=== PATIENT | female | born 1980 | race Caucasian/White ===

== ENCOUNTER 2022-05-14 17:25 | Emergency (ER) | payer BC, SELFPAY ==
[2022-05-14 17:26] VITALS: BP 185/102; PULSE 98; RESP 16; TEMP 36.2; O2SAT 100; BMI 24.2
--- NOTE | 2022-05-14 17:40 | EKG12_ITS ---
Test Reason : CP Blood Pressure : / mmHG Vent. Rate : 088 BPM Atrial Rate : 088 BPM P-R Int : 122 ms QRS Dur : 094 ms QT Int : 366 ms P-R-T Axes : 073 053 046 degrees QTc Int : 442 ms Normal sinus rhythm Nonspecific ST abnormality Abnormal ECG Confirmed by KAREN MATHEW, WILSON ([id number]), continuity editor HARINDER BRAVO ([id number]) on 05/18/2022 12:14:30 PM Referred By: SHI/EDA Confirmed By:WILSON JONES MD
--- NOTE | 2022-05-14 17:40 | EDS_ITS ---
HPI History of Present Illness Chief Complaint: Chest Pain Informant: patient Onset/Context/Timing Onset: Yesterday Activity at onset: gradual Timing: Continuous Quality: Positive for Tightness Location: Substernal Current Severity: Mild Maximum Severity: Mild Narrative Narrative: Patient presents emergent care secondary to chest pain. She states yesterday she noted some chest pressure in the center portion of her chest. It is worse with cough. It is slightly worse with a deep breath as well. She has not had fever or chills. At urgent care she had a chest x-ray that was reportedly normal. She states she was told to come here to rule out blood clot in her zeinab ng. PFSH PFSH Medical History no medical history no medical history Allergy/AdvReac Type Severity Reaction Status Date / Time No Known Allergies Allergy Verified 05/14/22 17:26 Family History Grandfather CAD (coronary artery disease) Social History Smoking Status: Never smoker ROS ROS ED Constitutional Constitutional ED: Denies chills or fever(s) Eyes Eyes: Denies change in vision or discharge from eye(s) ENT ENT ED: Denies discharge from eye(s), rhinorrhea or sore throat Cardiovascular Cardiovascular: Reports chest pain; Denies palpitations Respiratory/Chest Respiratory/Chest: Reports cough and dyspnea; Denies sputum Gastrointestinal Gastrointestinal: Denies abdominal pain, diarrhea, nausea or vomiting Genitourinary Genitourinary ED: Denies dysuria Musculoskeletal Musculoskeletal: Denies back pain or extremity pain Integumentary Denies Abrasions or rash Neurologic Neurologic: Denies headache(s) or weakness Psychiatric Psychiatric: Denies anxiety or depression Allergic/Immunologic Allergic/Immunologic ED: Denies lip swelling or urticaria EXAM Physical Exam Const Vital Signs: 05/14/22 17:26 Temperature 97.2 F L Temperature Source Temporal Pulse Rate 98 Respiratory Rate 16 Blood Pressure 185/102 H Blood Pressure Mean 129 Pulse Ox 100 Oxygen Delivery Method Room Air Positive well nourished and well developed General Appearance ED: well developed HEENT Reports normocephalic and head/scalp atraumatic Eyes PERRL and EOMs intact bilaterally Neck supple Chest Wall inspection of chest normal and palpation of chest normal Chest Narrative: No reproducible chest wall tenderness. Resp normal respiratory effort and clear to auscultation bilaterally Cardio regular rate and regular rhythm GI normal to inspection, nondistended, normoactive bowel sounds Palpation: soft Extremity normal to inspection Neuro oriented x3 and no sensory deficits noted Sensorium / Orientation: alert Motor Exam: strength 5/5 throughout Psych mental status grossly normal Skin no rashes or lesions noted Heart Score History: Slightly/Non-Suspicious ECG: Nonspecific Repolarization Age: </= 45 years Risk Factors: No Risk Factors Troponin: </= Normal Limit Score: 1 MDM MDM MDM Narrative Medical decision making narrative: Patient had a chest x-ray obtained at urgent care that was normal. EKG and lab work obtained here. Lab Data Attestation: I reviewed the patient's lab results. Labs: Laboratory Results - last 24 hr 05/14/22 05/14/22 05/14/22 17:50 17:50 17:50 WBC 6.1 RBC 4.67 Hgb 14.3 Hct 41.6 MCV 89.1 MCH 30.6 MCHC 34.4 RDW Std Deviation 37.4 RDW Coeff of Pa 11.5 L Plt Count 250 MPV 8.7 Immature Gran % (Auto) 0.200 Neut % (Auto) 76.9 H Lymph % (Auto) 14.2 L Robeson % (Auto) 8.2 Eos % (Auto) 0.2 Baso % (Auto) 0.3 Absolute Neuts (auto) 4.7 Absolute Lymphs (auto) 0.87 Nucleated RBC % 0 D-Dimer Quant (PE/DVT) 0.39 Sodium 135 L Potassium 3.7 Chloride 102 Carbon Dioxide 22.0 Anion Gap 11 BUN 12 Creatinine 0.74 Estim Creat Clear Calc 85.52 Est GFR (MDRD) Af Amer 111 Est GFR (MDRD) Non-Af 91 BUN/Creatinine Ratio 16.3 Glucose 79 Calcium 9.2 Troponin I High Sens 18 EKG Initial EKG: Attestation: I personally reviewed and interpreted this EKG as follows: Interpretation: Sinus Rhythm (Sinus [address] depression. Artifact is noted in V3 through V6.) Treatment and Re-Evaluation Narrative: Repeat evaluation patient resting comfortably. Lab work is unremarkable with normal D-dimer and normal troponin. EKG reveals no obvious ST elevation. She has had pain for greater than 6 hours with a normal troponin at this time. She does have URI symptoms and my suspicion is that she has inflammation of the cartilage around her sternum causing her pain. She is advised to use ibuprofen. Return instructions are given. Patient's blood pressure will be rechecked prior to discharge as it was elevated on arrival. Discharge Plan Triage Chief Complaint: Chest Pain ED Provider: Terri Lrason Dx/Rx/DC Orders Clinical Impression: Chest pain Instructions: ED Chest Pain, Uncertain Cause Primary Care Provider: Benita Shin NP Referrals: Benita Shin INTERNAL AFFAIRS COMMANDER, INTERNAL AFFAIRS COMMANDER-C [Primary Care Provider] - 3-5 Days if not improving Disposition Disposition: Home, Self Care
[2022-05-14 18:02] LABS: Absolute Lymphocyte Count 0.87 X10^3/uL (0.83-4.51); Absolute Neutrophil Count 4.7 X10^3/uL (2.0-7.7); Basophil# 0.02 X10^3/uL; Basophil% 0.3 % (0-1); Eosinophil# 0.01 X10^3/uL; Eosinophils% 0.2 % (0-5); Hematocrit 41.6 % (37-47); Hemoglobin 14.3 g/dL (12.0-15.0); Lymphocyte # 0.87 X10^3/ul (0.83-4.51); Lymphocyte % 14.2 % (19-41); Mean Corp Hgb Conc 34.4 g/dL (32-36); Mean Corpuscular Hgb 30.6 pg (27.0-32.0); Mean Corpuscular Volume 89.1 fL (81-99); Mean Platelet Vol. 8.7 fl (6.2-12.0); Monocyte% 8.2 % (0-10); NRBC Flagged by Analyzer 0 % (0-5); Neutrophil # 4.72 X10^3/uL (2.7-7.7); Neutrophil % 76.9 % (47-70); Platelet Count 250 K/mm3 (150-450); RBC Distribution Width CV 11.5 % (11.6-14.6); RBC Distribution Width SD 37.4 fl (35.1-43.9); Red Blood Count 4.67 M/mm3 (4.2-5.4); White Blood Count 6.1 K/mm3 (4.4-11.0)
[2022-05-14 18:29] LABS: D-Dimer Quantitative (DVT/PE) 0.39 FEU/ug/m (0.27-0.49)
[2022-05-14 18:37] LABS: Anion Gap 11 (5-15); BUN 12 mg/dL (7-18); BUN/Creat Ratio 16.3 RATIO (10-20); Calcium,Total 9.2 mg/dL (8.5-10.1); Chloride 102 mmol/L (98-107); Creatinine, Serum 0.74 mg/dL (0.55-1.02); EST Glomerular Filtration Rate 91 mL/min (>60); Est Glom Filt Rate - Afr Amer 111 mL/min (>60); Estimated Creatinine Clearance 85.52 ml/min; Glucose 79 mg/dL (74-106); Potassium 3.7 mmol/L (3.5-5.1); Sodium Level 135 mmol/L (136-145); Troponin-I HS 18 pg/mL (3.0-54.0)
[2022-05-14 19:02] VITALS: BP 154/92; PULSE 85; RESP 13; O2SAT 100
== END 2022-05-14 19:04 | disposition home or self-care (01) ==
PROVIDERS: Emergency Provider Emergency Medicine; PCP Nurse Practitioner Family; Visit Provider Emergency Medicine
DX: R07.9 Chest pain, unspecified (principal); R05.9 Cough, unspecified; Z82.49 Family history of ischemic heart disease and other diseases of the circulatory system
CPT/HCPCS: 80048; 84484; 85025; 85379; 93005; 99284; A4216

== ENCOUNTER → 2023-07-25 | Outpatient (CLI) | payer BC, SELFPAY ==
--- OUTSIDE RECORDS SUMMARY | 2023-07-25 12:34 | XMS RPT_ITS | CCD ---
Author Name Unknown Address [address] [place] [address] Organization [facility] Care Team Providers Care Diesel Scoop Operator Name Role Phone WILLIS WILLINGHAM Unavailable Unavailable REFERRING, PRACHI CUMMINGS ID~[id number] Unavailable Unava ilable Keyur Doyle III Primary Care Provider KEYUR DOYLE III Primary Care Unavail able KEYUR DOYLE III Primary Care Unavail able CARLTON STOREY Referring Unavailable Problems Problem Classification Problem Date Documented Da te Episodic/Chronic Other circulatory disease (1 source) Elevated blood-pressure reading without diagnosis of hypertension; Translations: [Elevated blood-pressure reading, without diagnosis of hypertension] Episodic Other lower respiratory disease (1 source) Cough; Translations: [Acute cough] Episodic Other lower respiratory disease (1 source) Pleuritic pain; Translations: [Pleurodynia] Episodic Other lower respiratory disease (1 source) Pleurodynia; Translations: [Pleuritic chest pain] Onset: 05-14-2022 Episodic Unclassified (1 source) Acute cough; Translations: [Acute cough] Onset: 05-14-2022 Results Test Name Value Interpretation Reference Range Facil ity Vital Signs Date Time Vital Sign Value Performing Clinician Marge foote 05-14-2022 17:04-0500 Diastolic blood pressure 88 mm[Hg] Carlton Storey MD Work Phone: [facility] 05-14-2022 17:04-0500 Systolic blood pressure 164 mm[Hg] Carlton Storey MD Work Phone: [facility] 05-14-2022 15:40-0500 Body temperature 98.01 [degF] Carlton Storey MD Work Phone: [facility] 05-14-2022 15:40-0500 Body weight 64.23 kg Carlton Storey MD Work Phone: [facility] 05-14-2022 15:40-0500 Heart rate 104 /min Carlton Storey MD Work Phone: [facility] 05-14-2022 15:40-0500 Respiratory rate 18 /min Carlton Storey MD Work Phone: [facility] 05-14-2022 15:40-0500 SaO2% (BldA) [Mass fraction] 99 % Carlton Storey MD Work Phone: [facility] Encounters Encounter Date Encounter Type Care Provider Facility Start: 05-14-2022 End: 05-14-2022 ambulatory [facility] Facility:[facility] Start: 05-14-2022 End: 05-14-2022 ambulatory [facility] Facility:[facility] Start: 05-14-2022 End: 05-14-2022 Patient encounter procedure Carlton Storey MD Work Phone: [facility] Plan of Treatment Date Care Activity Detail Author Start: 02-11-2022 Influenza vaccination INFLUENZA (#1) [facility] Start: 06-13-2021 DEPRESSION ASSESSMENT DEPRESSION ASS ESSMENT [facility] Start: 02-24-2021 HPV TESTING HPV TESTING [facility] Start: 02-24-2021 PAP TESTING PAP TESTING [facility] Start: 2019 Mammography MAMMOGRAM [facility] Start: 1998 Urine microalbumin profile DTAP,TDAP ,TD (1 - Tdap) [facility] Start: 1997 HEPATITIS C SCREENING HEPATITIS C SC REENING [facility] Start: 1997 HIV SCREENING HIV SCREENING [facility] Start: 02-08-1980 COVID-19 VACCINE (#1) COVID-19 VACCI NE (#1) [facility] Start: 1979 HEPATITIS B (1 of 3 - 3-dose series) HEPATITIS B (1 of 3 - 3-dose series) [facility] Payers Date Payer Category Payer Unknown ANTHEM BLUE CARD PPO OOS [id number] 2019-Present [phone] [address] [place] [address] O [id number] 2019 Unknown [id number] 2017 Unknown [id number] Social History Date Type Detail Facility Start: 07-11-2013 Tobacco smoking stat us NHIS Never smoked tobacco [facility] Start: 07-11-2013 Tobacco use and exposure Smokeless tobacco non-user [facility] Start: 05-14-2022 Alcohol intake Current non-dr glass bender of alcohol (finding) [facility] Start: 1980 Sex Assigned At Not on file [facility] Start: 05-04-2022 End: 05-14-2022 Exposure to SARS-CoV-2 (event) Not sure [facility] Work Phone: Progress note 05-14-2022 Note Date & Type Note Facility 05-14-2022 Note HNO ID: [id number] Author: RT Dimitris(R) Service: ? Author Type: Film Sorter Type: Progress Notes Filed: 05/14/2022 5:03 PM Note Text: Radiology Service Progress Note PATIENT NAME: Isael Carreno DATE OF SERVICE: May 14, 2022 TIME: 5:02 PM PATIENT IDENTITY VERIFICATION COMPLETED USING TWO (2) IDENTIFIERS: Name and Date of confirmed by patient verbally. FALL SCREENING: Has the patient had 2 falls in the last year or 1 fall with injury or currently using an Ambulatory Assistive Device (Walker, Cane, Wheelchair, Crutches, etc.)? No PATIENT GENDER DATA: Female. status: : No status: NO. PATIENT RELEVANT IMPLANT DATA REVIEWED: Yes RADIOLOGY DEPARTMENT: General X-ray: Exam(s) Completed: Chest X-Ray PERIPHERAL IV DATA: Not applicable SIGNED BY: RT Dimitris(R) May 14, 2022 5:02 PM [facility] Progress note 05-14-2022 Note Date & Type Note Facility 05-14-2022 Note HNO ID: [id number] Author: Carlton Storey MD Service: ? Author Type: Physician Type: Progress Notes Filed: 05/14/2022 5:34 PM Note Text: Patient presents with: Cough: Chest congestion, ST x1 day HPI: Feeling sick for 24 hours. Positive symptoms: Cough, Chest tightness, chest hurts with deep breaths and lying down, Chills, Body Aches, Shortness of breath, Negative symptoms: Sore throat, Nasal Congestion, Rhinorrhea, Headache, Nausea, Vomiting, Diarrhea, OTC: none. Had illness with loss of smell April 2020 but has not had positive COVID testing. Denies risk of . No personal or family history of blood clots. No recent travel, leg swelling, or leg pain. PAST MEDICAL HISTORY Diagnosis Date NEGATIVE MEDICAL HISTORY PAST SURGICAL HISTORY Procedure Laterality Date PAST SURGICAL HISTORY OF 05/15 HYMENECTOMY UNSPECIFIED ORAL SURGERY PROCEDURE, BY REPORT [facility] MEDICATIONS: No current outpatient medications on file. No current facility-administered medications for this visit. ALLERGIES: ALLERGIES No Known Allergies VITALS: BP 172/100 Pulse 104 Temp 36.7 ?C (98 ?F) Resp 18 Wt 64.2 kg (141 lb 9.6 oz) LMP 09/07/2017 SpO2 99% BMI 24.31 kg/m? Last 4 Encounter BP Readings: Date: BP: 05/14/2022 162/90 09/18/2017 124/76 07/15/2016 108/70 06/12/2016 108/68 PHYSICAL EXAM: GEN: Pleasant, in no acute distress, accompanied by her . HEENT: PERRL, EOMI, conjunctiva clear, ulcer/eschar left upper vermilion border of the lip Ears: canals clear. TMs without erythema, bulge, or effusion Sinuses: non-tender frontal sinus, non-tender maxillary sinuses Throat: moist mucous membranes, no erythema, no exudate Neck: supple, no thyromegaly, no lymphadenopathy HEART: regular rate and rhythm during my exam, no murmurs LUNGS: clear to auscultation, no wheezes or crackles, no increased WOB CHEST: no peristernal tenderness with palpation. ASSESSMENT/PLAN: 1. Acute cough - ICD9: 786.2, ICD10: R05.1 (primary diagnosis) 2. Pleuritic chest pain - ICD9: 786.52, ICD10: R07.81 - XR CHEST 2V FRONTAL/LAT - negative Suspect early influenza-like illness. Her differential includes pulmonary embolism and pericarditis. She is feeling more uncomfortable with chest pain and will go for further evaluation in the ER. Report sent to [facility] by [facility]. 3. Elevated blood pressure reading without diagnosis of hypertension - ICD9: 796.2, ICD10: R03.0 Improved with recheck. She does have a PCP. Carlton Storey MD [facility] History of Present illness Narrative 05-14-2022 Carlton Storey MD - 05/14/2022 3:46 PM EST Note Date & Type Note Facility 05-14-2022 History of Presen t illness Narrative Patient presents with: Cough: Chest congestion, ST x1 day HPI: Feeling sick for 24 hours. Positive symptoms: Cough, Chest tightness, chest hurts with deep breaths and lying down, Chills, Body Aches, Shortness of breath, Negative symptoms: Sore throat, Nasal Congestion, Rhinorrhea, Headache, Nausea, Vomiting, Diarrhea, OTC: none. Had illness with loss of smell April 2020 but has not had positive COVID testing. Denies risk of . No personal or family history of blood clots. No recent travel, leg swelling, or leg pain. PAST MEDICAL HISTORY Diagnosis Date NEGATIVE MEDICAL HISTORY PAST SURGICAL HISTORY Procedure Laterality Date PAST SURGICAL HISTORY OF 05/15 HYMENECTOMY UNSPECIFIED ORAL SURGERY PROCEDURE, BY REPORT [facility] MEDICATIONS: No current outpatient medications on file. No current facility-administered medications for this visit. ALLERGIES: ALLERGIES No Known Allergies VITALS: BP 172/100 Pulse 104 Temp 36.7 C (98 F) Resp 18 Wt 64.2 kg (141 lb 9.6 oz) LMP 09/07/2017 SpO2 99% BMI 24.31 kg/m Last 4 Encounter BP Readings: Date: BP: 05/14/2022 162/90 09/18/2017 124/76 07/15/2016 108/70 06/12/2016 108/68 PHYSICAL EXAM: GEN: Pleasant, in no acute distress, accompanied by her . HEENT: PERRL, EOMI, conjunctiva clear, ulcer/eschar left upper vermilion border of the lip Ears: canals clear. TMs without erythema, bulge, or effusion Sinuses: non-tender frontal sinus, non-tender maxillary sinuses Throat: moist mucous membranes, no erythema, no exudate Neck: supple, no thyromegaly, no lymphadenopathy HEART: regular rate and rhythm during my exam, no murmurs LUNGS: clear to auscultation, no wheezes or crackles, no increased WOB CHEST: no peristernal tenderness with palpation. ASSESSMENT/PLAN: 1. Acute cough - ICD9: 786.2, ICD10: R05.1 (primary diagnosis) 2. Pleuritic chest pain - ICD9: 786.52, ICD10: R07.81 - XR CHEST 2V FRONTAL/LAT - negative Suspect early influenza-like illness. Her differential includes pulmonary embolism and pericarditis. She is feeling more uncomfortable with chest pain and will go for further evaluation in the ER. Report sent to [facility] by [employer]. 3. Elevated blood pressure reading without diagnosis of hypertension - ICD9: 796.2, ICD10: R03.0 Improved with recheck. She does have a PCP. Carlton Storey MD documented in this encounter [facility] History of Past illness Narrative 08-26-2009 Note Date & Type Note Facility documented as of this encounter (statuses as of 05/14/2022) [facility] Evaluation note Note Date & Type Note Facility documented in this encounter [facility] Summary Purpose Family History No Family History Records FoundNo Family History Records Found Advance Directives No Advanced Directives Records FoundNo Advanced Directives Records Found Additional Source Comments INFORMATION SOURCE (unrecogn ized section and content) DATE CREATED AUTHOR AUTHOR'S ORGANIZ ATION 05/15/2022 [facility] Source Comments (unrecognize d section and content) In the event this informatio n is protected by the Federal Confidentiality of Alcohol and Drug Abuse Patient Records regulations: The Federal rules restrict any use of the information to criminally investigate or prosecute any alcohol or drug abuse patient.[facility] Reason for Visit (unrecogniz ed section and content) Care Teams (unrecognized sec tion and content) FOR RECORDS PERTAINING TO PATIENTS WHO ARE OR HAVE BEEN ENROLLED IN A CHEMICAL DEPENDENCY/SUBSTANCEABUSE PROGRAM, SOME INFORMATION MAY BE OMITTED. This clinical summary was aggregated from multiple sources. Caution should be exercised in using it in the provision of clinical care. This summary normalizes information from multiple sources, and as a consequence, information in this document may materially change the coding, format and clinical context of patient data. In addition, data may be omitted in some cases. CLINICAL DECISIONS SHOULD BE BASED ON THE PRIMARY CLINICAL RECORDS. [employer] [facility]. provides no warranty or guarantee of the accuracy or completeness of information in this document.
[2023-07-25 12:59] LABS: Absolute Lymphocyte Count 1.49 X10^3/uL (0.83-4.51); Absolute Neutrophil Count 2.4 X10^3/uL (2.0-7.7); Basophil# 0.03 X10^3/uL; Basophil% 0.7 % (0-1); Eosinophil# 0.09 X10^3/uL; Eosinophils% 2.1 % (0-5); Hematocrit 40.3 % (37-47); Hemoglobin 13.2 g/dL (12.0-15.0); Lymphocyte # 1.49 X10^3/ul (0.83-4.51); Lymphocyte % 35.4 % (19-41); Mean Corp Hgb Conc 32.8 g/dL (32-36); Mean Corpuscular Hgb 29.4 pg (27.0-32.0); Mean Corpuscular Volume 89.8 fL (81-99); Mean Platelet Vol. 9.3 fl (6.2-12.0); Monocyte# 0.22 X10^3/uL; Monocyte% 5.2 % (0-10); NRBC Flagged by Analyzer 0 % (0-5); Neutrophil # 2.37 X10^3/uL (2.7-7.7); Neutrophil % 56.4 % (47-70); Platelet Count 341 K/mm3 (150-450); RBC Distribution Width CV 11.9 % (11.6-14.6); RBC Distribution Width SD 38.6 fl (35.1-43.9); Red Blood Count 4.49 M/mm3 (4.2-5.4); White Blood Count 4.2 K/mm3 (4.4-11.0)
[2023-07-25 14:18] LABS: AST(SGOT) 14 U/L (15-37); Alanine Aminotransfer ALT/SGPT 22 U/L (13-56); Albumin, Serum 4.2 g/dL (3.2-5.0); Alkaline Phosphatase 57 U/L (45-117); Anion Gap 7 (5-15); BUN 10 mg/dL (7-18); BUN/Creat Ratio 15.3 RATIO (10-20); Calcium,Total 9.1 mg/dL (8.5-10.1); Chloride 106 mmol/L (98-107); Cholesterol 292 mg/dL (200); Creatinine, Serum 0.66 mg/dL (0.55-1.02); EST Glomerular Filtration Rate 104 mL/min (>60); Est Glom Filt Rate - Afr Amer 126 mL/min (>60); Ferritin 44 ng/mL (8-252); Free T3 2.8 pg/mL (2.18-3.98); Globulin 4.1 g/dL (2.2-4.2); Glucose 92 mg/dL (74-106); High Density Lipoprotein 63 mg/dL; Iron 70 ug/dL (50-170); Potassium 3.9 mmol/L (3.5-5.1); Protein, Total 8.3 g/dL (6.4-8.2); Sodium Level 139 mmol/L (136-145); Thyroid Stim Hormone (TSH) 1.21 uIU/mL (0.358-3.74); Triglycerides 68 mg/dL; Very Low Density Lipoprotein 14 mg/dL (5-40)
[2023-07-26 16:09] LABS: Thyroglobulin Antibody < 1.0 IU/mL (0.0-0.9); Thyroid Peroxidase AB < 9 IU/mL (0-34)
== END | disposition home or self-care (01) ==
LOC: LABSPEC 12:16
PROVIDERS: PCP Nurse Practitioner Family; Referring Provider Nurse Practitioner Family; Visit Provider Nurse Practitioner Family
DX: R05.9 Cough, unspecified (principal); R53.83 Other fatigue; F41.9 Anxiety disorder, unspecified; E04.1 Nontoxic single thyroid nodule
CPT/HCPCS: 80053; 80061; 82728; 83540; 84439; 84443; 84481; 85025; 86376; 86800

== ENCOUNTER → 2023-07-30 | Outpatient (CLI) | payer BC, SELFPAY ==
--- OUTSIDE RECORDS SUMMARY | 2023-07-30 10:09 | XMS RPT_ITS | CCD ---
Author Name Unknown Address [address] [place] [address] Organization [facility] Care Team Providers Care Risk Control Field Representative Name Role Phone WILLIS WILLINGHAM Unavailable Unavailable REFERRING, PRACHI CUMMINGS ID~[id number] Unavailable Unava ilable Keyur Doyle III Primary [...] 88 mm[Hg] Carlton Storey MD Work Phone: [facility] 05-14-2022 17:04-0500 Systolic blood pressure 164 mm[Hg] Carlton Storey MD Work Phone: [facility] 05-14-2022 15:40-0500 Body temperature 98.01 [degF] Carlton Storey MD Work Phone: [facility] 05-14-2022 15:40-0500 Body weight 64.23 kg Carlton Storey MD Work Phone: [facility] 05-14-2022 15:40-0500 Heart rate 104 /min Carlton Storey MD Work Phone: [facility] 05-14-2022 15:40-0500 Respiratory rate 18 /min Carlton Storey MD Work Phone: [facility] 05-14-2022 15:40-0500 SaO2% (BldA) [Mass fraction] 99 % Carlton Storey MD Work Phone: [facility] Encounters Encounter Date Encounter Type Care Provider Facility Start: 05-14-2022 End: 05-14-2022 ambulatory [facility] Facility:[facility] Start: 05-14-2022 End: 05-14-2022 ambulatory [facility] Facility:[facility] Start: 05-14-2022 End: 05-14-2022 Patient encounter procedure Carlton Storey MD Work Phone: [facility] Plan of Treatment Date Care Activity Detail Author Start: 02-11-2022 Influenza vaccination INFLUENZA (#1) [facility] Start: 06-13-2021 DEPRESSION ASSESSMENT DEPRESSION ASS ESSMENT [facility] Start: 02-24-2021 HPV TESTING HPV TESTING [facility] Start: 02-24-2021 PAP TESTING PAP TESTING [facility] Start: 2019 Mammography MAMMOGRAM [facility] Start: 1998 Urine microalbumin profile DTAP,TDAP ,TD (1 - Tdap) [facility] Start: 1997 HEPATITIS C SCREENING HEPATITIS C SC REENING [facility] Start: 1997 HIV SCREENING HIV SCREENING [facility] Start: 02-08-1980 COVID-19 VACCINE (#1) COVID-19 VACCI NE (#1) [facility] Start: 1979 HEPATITIS B (1 of 3 - 3-dose series) HEPATITIS B (1 of 3 - 3-dose series) [facility] Payers Date Payer Category Payer Unknown ANTHEM BLUE CARD PPO OOS [id number] 2019-Present [phone] [address] [place] [address] O [id number] 2019 Unknown [id number] 2017 Unknown [id number] Social History Date Type Detail Facility Start: 07-11-2013 Tobacco smoking stat us NHIS Never smoked tobacco [facility] Start: 07-11-2013 Tobacco use and exposure Smokeless tobacco non-user [facility] Start: 05-14-2022 Alcohol intake Current non-dr coding specialist of alcohol (finding) [facility] Start: 1980 Sex Assigned At Not on file [facility] Start: 05-04-2022 End: 05-14-2022 Exposure to SARS-CoV-2 (event) Not sure [facility] Work Phone: Progress note 05-14-2022 Note Date & Type Note Facility 05-14-2022 Note HNO ID: [id number] Author: RT Dimitris(R) Service: ? Author Type: End Trimmer Type: Progress Notes Filed: 05/14/2022 5:03 PM [...] RT Dimitris(R) May 14, 2022 5:02 PM [facility] Progress note 05-14-2022 Note Date & Type Note Facility 05-14-2022 Note HNO ID: [id number] Author: Carlton Storey MD Service: ? Author [...] HYMENECTOMY UNSPECIFIED ORAL SURGERY PROCEDURE, BY REPORT [facility] MEDICATIONS: No current outpatient medications on [...] evaluation in the ER. Report sent to [facility] by [facility]. 3. Elevated blood pressure reading without diagnosis of hypertension - ICD9: 796.2, ICD10: R03.0 Improved with recheck. She does have a PCP. Carlton Storey MD [facility] History of Present illness Narrative 05-14-2022 Carlton [...] HYMENECTOMY UNSPECIFIED ORAL SURGERY PROCEDURE, BY REPORT [facility] [facility] MEDICATIONS: No current outpatient medications on [...] evaluation in the ER. Report sent to [facility] by [employer]. 3. Elevated blood pressure reading without diagnosis of hypertension - ICD9: 796.2, ICD10: R03.0 Improved with recheck. She does have a PCP. Carlton Storey MD documented in this encounter [facility] History of Past illness Narrative 08-26-2009 Note Date & Type Note Facility documented as of this encounter (statuses as of 05/14/2022) [facility] Evaluation note Note Date & Type Note Facility documented in this encounter [facility] Summary Purpose Family History No Family History Records FoundNo Family History Records Found Advance Directives No Advanced Directives Records FoundNo Advanced Directives Records Found Additional Source Comments INFORMATION SOURCE (unrecogn ized section and content) DATE CREATED AUTHOR AUTHOR'S ORGANIZ ATION 05/15/2022 [facility] Source Comments (unrecognize d section and content) In the event this informatio n is protected by the Federal Confidentiality of Alcohol and Drug Abuse Patient Records regulations: The Federal rules restrict any use of the information to criminally investigate or prosecute any alcohol or drug abuse patient.[facility] Reason for Visit (unrecogniz ed section [...] BE BASED ON THE PRIMARY CLINICAL RECORDS. [employer] [facility]. provides no warranty or guarantee of the accuracy or completeness of information in this document.
--- NOTE | 2023-07-30 10:11 | US_ITS ---
STUDY: THYROID ULTRASOUND REASON FOR EXAM: Female, 42 years old. NODULE TECHNIQUE: Ultrasound evaluation of the thyroid was performed with real-time and static nguyen-scale imaging. COMPARISON: None. FINDINGS: RIGHT LOBE: The right lobe of the thyroid gland measures 5.0 x 1.7 x 1.4 cm. There is a homogeneous echotexture. There are no demonstrated solid, cystic or complex lesions. LEFT LOBE: The left lobe of the thyroid gland measures 5.2 x 1.5 x 1.4 cm. There is a homogeneous echotexture. There are no demonstrated solid, cystic or complex lesions. ISTHMUS: The isthmus measures 2 mm thick. . The regional lymph nodes are normal. US/Thyroid IMPRESSION: Normal ultrasound examination of the thyroid. Electronically Signed: Demar Dia MD at 18:57 EST ,
== END | disposition home or self-care (01) ==
PROVIDERS: PCP Nurse Practitioner Family; Referring Provider Nurse Practitioner Family; Visit Provider Nurse Practitioner Family
DX: E04.1 Nontoxic single thyroid nodule (principal)
CPT/HCPCS: 76536

== ENCOUNTER 2024-11-07 16:29 | Emergency (ER) | payer BC, SELFPAY ==
[2024-11-07 16:30] VITALS: BP 178/93; PULSE 99; RESP 15; TEMP 36.1; O2SAT 100; BMI 25.5
[2024-11-07 17:49] LABS: Bacteria 0 SEEN /hpf (None Seen); Mucous, Urine 0 SEEN /hpf (<or=2+); White Blood Cells 0 SEEN /hpf (0-5)
[2024-11-07 17:52] LABS: Absolute Lymphocyte Count 2.59 X10^3/uL (0.83-4.51); Absolute Neutrophil Count 5.7 X10^3/uL (2.0-7.7); Basophil# 0.05 X10^3/uL; Basophil% 0.6 % (0-1); Eosinophil# 0.05 X10^3/uL; Eosinophils% 0.6 % (0-5); Hematocrit 41.3 % (37-47); Hemoglobin 14.3 g/dL (12.0-15.0); Lymphocyte # 2.59 X10^3/ul (0.83-4.51); Lymphocyte % 29.2 % (19-41); Mean Corp Hgb Conc 34.6 g/dL (32-36); Mean Corpuscular Hgb 30.8 pg (27.0-32.0); Mean Platelet Vol. 8.8 fl (6.2-12.0); Monocyte# 0.52 X10^3/uL; Monocyte% 5.9 % (0-10); NRBC Flagged by Analyzer 0 % (0-5); Neutrophil # 5.65 X10^3/uL (2.7-7.7); Neutrophil % 63.5 % (47-70); Platelet Count 313 K/mm3 (150-450); RBC Distribution Width CV 11.5 % (11.6-14.6); RBC Distribution Width SD 37.1 fl (35.1-43.9); Red Blood Count 4.64 M/mm3 (4.2-5.4); White Blood Count 8.9 K/mm3 (4.4-11.0)
[2024-11-07 18:03] LABS: Color, Urine Yellow (Yellow); Glucose, Dipstick Normal (Normal); Ketone-Dipstick 15 mg/dl (Negative); Leukocyte Esterase-Dipstick Negative /ul (Negative); Nitrite-Dipstick Negative (Negative); Occult Blood-Urine Negative /ul (Negative); Protein-Dipstick Negative (Negative); Specific Gravity, Urine 1.005 (1.002-1.030); Urine Bilirubin Dipstick Negative (Negative); Urine Clarity Clear (Clear); Urine Urobilinogen Normal (Normal); Urine pH 6.5 (5.0 - 8.0)
[2024-11-07 19:09] LABS: Red Blood Cells-Urine 0-5 SEEN /hpf (0-5); Squamous Epithelial Cells - UA 0-5 SEEN /hpf (5-10)
--- NOTE | 2024-11-07 20:21 | US_ITS ---
PROCEDURE: TRANSVAGINAL NON- 11/07/2024 REASON FOR EXAM: TENDERNESS AND PAIN RIGHT OVARY WHICH MAY BE ENLAR TECHNIQUE: Transvaginal pelvic ultrasound COMPARISON: None FINDINGS: Measurements: Uterus: 8.3 x 5.6 x 4.5 cm with a volume of 108 mL Endometrial Thickness: 1.1 cm Right Ovary: 3.3 x 1.9 x 1.4 cm with a volume of 4.6 mL. Left Ovary: 4 x 2.6 x 2.4 cm with a volume of 13.4 mL. Uterus: Heterogeneous in echotexture. Normal in size. No suspicious lesions. Endometrium: Is thickened and heterogeneous measuring 1.1 cm. Right ovary: Normal size and echotexture. Left ovary: 2.5 cm complex and heterogeneous hypoechoic cystic lesion. Other: Moderate free fluid within the cul de sac. US/Transvaginal Non- IMPRESSION: No sonographic evidence of torsion. Thickened and heterogeneous endometrium measuring up to 1.1 cm, please correlat e clinically with patient's menstrual cycle. If clinically indicated sonohysterogram may be helpful for further characterizatio n. 2.5 cm complex heterogeneous left ovarian cysts, may represent hemorrhagic cyst s. Moderate free fluid within the cul-de-sac. Reading Location: [facility]
[2024-11-07 20:29] VITALS: BP 114/66; PULSE 78
--- NOTE | 2024-11-07 22:00 | EX.ED.DYSGE1 ---
HPI History of Present Illness Chief Complaint: Complaint Detail of Chief Complaint: UTI, right inguinal right lower abdominal pain Informant: patient and spouse/S.O. Onset/Context/Timing Onset: Days (Approximately 7 to 8 days) Context: Sudden Onset Timing: Continuous and Waxes and wanes Quality: Pain Location: Right inguinal area that goes up to the iliac crest on the right and to the Current Severity: Mild Maximum Severity: Moderate Worsened by: Movement and palpation Relieved by: Nothing Associated Symptoms Associated Symptoms: Patient states she was diagnosed with a UTI and treated with metronidazole Narrative Narrative: Patient is a 44-year-old G3, P3 female whose last normal menses was October 26. She states her cycle is approximate 25 days in duration. She does report vaginal discharge. She was able to look up her records from [facility]. Patient had bacterial vaginosis infection and reason she was treated with Flagyl. She does not have a UTI. She denies fever, chills night sweats. She denies nausea, vomiting diarrhea or constipation. She denies history of ovarian cyst, endometriosis or STI. She is and reports monogamous relationship. Patient denies any rash lesions or bumps. Prior similar symptoms: No Recent Illness/Hospitalization: Yes (She had a vaginal swab done and UA at urgent care.) PFSH [facility] Home Medications ?Medication ?Instructions ?Recorded ?Last Taken ?Type naproxen 500 mg tablet 500 mg PO BID #14 tabs 11/07/24 Unknown Rx Allergy/AdvReac Type Severity Reaction Status Date / Time No Known Allergies Allergy Verified 11/07/24 16:30 Family History Grandfather CAD (coronary artery disease) Social History household members: spouse housing: house Smoking Status: Never smoker ROS ROS ED Constitutional Constitutional ED: Denies chills, fever(s), subjective, sweats or weight loss Gastrointestinal Gastrointestinal: Reports abdominal pain; Denies constipation, diarrhea or melena Genitourinary Genitourinary ED: Reports LMP (females 10-50) Details: Comment: (October 16 and was normal); Denies dysuria, hematuria or urinary frequency Musculoskeletal Musculoskeletal: Denies arthralgias, back pain or myalgias Integumentary Denies rash Neurologic Neurologic: Denies paresthesias or weakness EXAM Physical Exam Const Vital Signs: 11/07/24 16:30 11/07/24 20:29 Temperature 97 F L Temperature Source Temporal Pulse Rate 99 78 Respiratory Rate 15 Blood Pressure 178/93 H 114/66 Blood Pressure Mean 121 82 Pulse Ox 100 Oxygen Delivery Method Room Air Positive well nourished and well developed Constitutional Narrative: Patient reports she is anxious. Blood pressure is elevated. General Appearance ED: well developed and NAD; Negative for cyanotic, diaphoretic or pallor HEENT Reports moist mucous membranes HEENT Narrative: Head is atraumatic normocephalic. Ears normal. Nares patent. Eyes PERRL and EOMs intact bilaterally General Eye ED: Negative for pale conjunctiva or scleral icterus Neck no lymphadenopathy, supple and no JVD Chest Wall inspection of chest normal and palpation of chest normal Resp normal respiratory effort and clear to auscultation bilaterally Cardio regular rate, regular rhythm, S1 normal heart sound, S2 normal heart sound and no murmurs GI non-distended and no masses; Negative for non-tender or hepatosplenomegaly GI Narrative: There is no right inguinal lymphadenopathy or mass. Bowel sounds are slightly diminished. Inspection is normal. Narrative: External genitalia is normal. Patient has evidence of a cystocele. Vaginal mucosa is normal. Cervix is slightly friable. She does have a discharge noted. She complained of discomfort right adnexa. Question of the right ovary being larger. She has no tenderness or or fullness in the left adnexal area. She had a negative chandelier sign. Back/Spine no CVA tenderness Extremity normal to inspection Neuro oriented x3 and CN's II-XII intact bilaterally Sensorium / Orientation: alert Psych Mood & Affect: anxious Skin no rashes or lesions noted, no wounds and skin turgor normal General Skin Exam: Negative for jaundice or pallor MDM MDM MDM Narrative Medical decision making narrative: Differential diagnosis would include inguinal hernia, femoral hernia, ovarian cyst, ectopic , atypical presentation for ureterolithiasis. Since patient workup was negative pelvic exam was obtained. Because of the abnormal findings ultrasound was obtained. History & Record Review Additional record(s) reviewed:: Prior outpatient record and Prior ED visit Lab Data Attestation: I reviewed the patient's lab results. Lab results narrative: CBC is normal. UA is negative. test is negative. Labs: Laboratory Results - last 24 hr 11/07/24 17:39 WBC 8.9 RBC 4.64 Hgb 14.3 Hct 41.3 MCV 89.0 MCH 30.8 MCHC 34.6 RDW Std Deviation 37.1 RDW Coeff of Pa 11.5 L Plt Count 313 MPV 8.8 Immature Gran % (Auto) 0.200 Neut % (Auto) 63.5 Lymph % (Auto) 29.2 [place] % (Auto) 5.9 Eos % (Auto) 0.6 Baso % (Auto) 0.6 Absolute Neuts (auto) 5.7 Absolute Lymphs (auto) 2.59 Nucleated RBC % 0 Urine Color Yellow Urine Clarity Clear Urine pH 6.5 Ur Specific [place] 1.005 Urine Protein Negative Urine Glucose (UA) Normal Urine Ketones 15 H Urine Occult Blood Negative Urine Nitrite Negative Urine Bilirubin Negative Urine Urobilinogen Normal Ur Leukocyte Esterase Negative Urine RBC 0-5 SEEN Urine WBC 0 SEEN Ur Squamous Epith Cells 0-5 SEEN Urine Bacteria 0 SEEN Urine Mucus 0 SEEN Radiography Diagnostic Testing: Clinical Impression(s) from Imaging Studies Transvaginal US 11/07/24 20:21 IMPRESSION: No sonographic evidence of torsion. Thickened and heterogeneous endometrium measuring up to 1.1 cm, please correlate clinically with patient's menstrual cycle. If clinically indicated sonohysterogram may be helpful for further characterization. 2.5 cm complex heterogeneous left ovarian cysts, may represent hemorrhagic cysts. Moderate free fluid within the cul-de-sac. Reading Location: [facility] Ultrasound report was reviewed. Patient has a 2.5 cm complex heterogeneous left ovarian cyst which probably represents a hemorrhagic cyst. There was fluid noted in the cul-de-sac. The endometrium is slightly thickened. Treatment and Re-Evaluation :: Patient was informed of her laboratory results. The swab that was positive for the bacterial vaginosis was obtained through [facility]. Patient was informed that this represents a bacterial infection of her vagina and reason she was placed on that specific antibiotic. Discharge Plan Triage Chief Complaint: Complaint ED Provider: Christopher Ochoa Dx/Rx/DC Orders Clinical Impression: Deep right inguinal pain, Cyst of left ovary, Ovarian cyst rupture, Bacterial vaginosis Instructions: ED Ovarian Cyst, ED Bacterial Vaginosis (BV) Prescriptions: New naproxen 500 mg tablet 500 mg PO BID Qty: 14 0RF Primary Care Provider: Benita Shin NP Referrals: Benita Shin NP, [facility] [Primary Care Provider] - 3-5 Days Activity Restrictions/Additional Instructions: 1. Take antibiotics until gone. 2. If your pain gets worse follow-up with your final operations technician sooner than 3 to 5 days or when scheduled. Print Language: Amharic Disposition Disposition: Home, Self Care
[2024-11-07 22:09] VITALS: BP 114/66; PULSE 78; RESP 14; TEMP 36.8; O2SAT 98
== END 2024-11-07 22:13 | disposition home or self-care (01) ==
PROVIDERS: Emergency Provider Emergency Medicine; PCP Nurse Practitioner Family; Visit Provider Emergency Medicine
DX: R10.31 Right lower quadrant pain (principal); N83.202 Unspecified ovarian cyst, left side; N76.0 Acute vaginitis; B96.89 Other specified bacterial agents as the cause of diseases classified elsewhere
CPT/HCPCS: 76830; 81001; 85025; 99282

== ENCOUNTER → 2024-11-19 | Outpatient (CLI) | payer BC, SELFPAY | END | disposition home or self-care (01) | LOC: LAB 14:19 | PROVIDERS: PCP Nurse Practitioner Family; Referring Provider Obstetrics & Gynecology; Visit Provider Obstetrics & Gynecology | DX: R10.31 Right lower quadrant pain (principal) | CPT/HCPCS: 36415; 87086 ==

== ENCOUNTER → 2024-11-22 | Outpatient (CLI) | payer BC, SELFPAY ==
[2024-11-22 16:41] LABS: Hemoglobin A1c 5.5 % (<=5.6)
[2024-11-22 17:02] LABS: ALB/GLOB Ratio 1.5 RATIO (0.9-2.4); AST(SGOT) 17 U/L (<=31); Alanine Aminotransfer ALT/SGPT 13 U/L (<=34); Albumin, Serum 4.9 g/dL (3.5-5.0); Alkaline Phosphatase 51 U/L (35-104); Anion Gap 13 (5-15); BUN 8 mg/dL (4-19); BUN/Creat Ratio 10.9 RATIO (10-20); Calcium,Total 9.7 mg/dL (7.6-11.0); Carbon Dioxide 25.4 mmol/L (21.0-32.0); Chloride 101 mmol/L (98-108); Cholesterol 297 mg/dL (<=200); Creatinine, Serum 0.69 mg/dL (0.70-1.20); EST Glomerular Filtration Rate 109 (>60); Ferritin 48 ng/mL (22-378); Globulin 3.2 g/dL (2.2-4.2); Glucose 88 mg/dL (70-99); High Density Lipoprotein 58 mg/dL; Low Density Lipoprotein Calc. 221 mg/dL; Potassium 3.9 mmol/L (3.3-5.1); Protein, Total 8.1 g/dL (5.9-8.4); Sodium Level 139 mmol/L (133-145); Total Bilirubin 0.43 mg/dL (0.00-1.30); Triglycerides 90 mg/dL; Very Low Density Lipoprotein 18 mg/dL (5-40); Vitamin B12 457 pg/mL (180-914); Vitamin D,25 Hydroxy 27.4 ng/mL (30-100); cholesterol:hdl ratio screen 5.11
[2024-11-22 17:44] LABS: CRP < 3.00 mg/L (0.0-3.0); Iron 76 ug/dL (50-170)
--- OUTSIDE RECORDS SUMMARY | 2024-11-22 21:24 | XMS RPT_ITS | CCD ---
Author Organization [facility] Care Team Providers Care A R Specialist Name Role Phone WILLIS WILLINGHAM Unavailable Unavailable REFERRINGPRACHI ID~[phone] Unavailable Unava ilable Keyur Cloud III Primary Care Provider Keyur Cloud III Primary Care Provider KEYUR CLOUD III Primary Care Unavail able YEIMY TYLER Attending Unavailable Aleida MARY, Benita Dunlap Primary Care Provider Un available Dr. Christopher Ochoa MD Emergency Provider [phone] Batool Barrera Referring Unavailable Benita Shin NP Primary Care UnavailBatool Lopez Attending Unavailable Benita Shin NP Primary Care UnavailLuiza Arellano Attending Unavailable Luiza Londono Referring Unavailable Batool Barrera Referring Unavailable Benita Shin NP Primary Care UnavailBatool Lopez Attending Unavailable Batool Barrera Attending Unavailable Benita Shin NP Primary Care Unavailmindy Shin NP, Benita Dunlap Referring Unavailmindy Shin NP, Benita Dunlap Primary Care UnavailChristopher Dempsey Attending Unavailable Medications Current Medications Medication Drug Class(es) Dates Sig (Normalized) Sig (Original) naproxen 500 mg oral tablet (1 source) Nonsteroidal Anti-inflammatory Drug Start: 11-07-2024 take 1 tablet by mouth twice daily Naproxen 500 mg tablet Active 500 mg PO TWICE A DAY November 07, 2024 12:00am Problems Active Problems Problem Classification Problem Date Documented Da te Episodic/Chronic Abdominal pain (2 sources) Right inguinal pain; Translations: [Right lower quadrant pain] Onset: 11-19-2024 11-07-2024 Episodic Genitourinary symptoms and ill-defined conditions (3 sources) Scalding pain on urination ; Translations: [Dysuria] Onset: 10-29-2024 10-29-2024 Episodic Inflammatory diseases of female pelvic organs (1 source) Bacterial vaginosis; Translations: [Acute vaginitis] 11-07-2024 Episodic Nonspecific chest pain (4 sources) Chest pain; Translations: [Chest pain, unspecified] 05-22-2022 Episodic Other circulatory disease (1 source) Elevated blood-pressure reading without diagnosis of hypertension; Translations: [Elevated blood-pressure reading, without diagnosis of hypertension] Episodic Other lower respiratory disease (1 source) Cough; Translations: [Acute cough] Episodic Other lower respiratory disease (2 sources) Pleuritic pain; Translations: [Pleurodynia] Episodic Other lower respiratory disease (1 source) Cough; Translations: [Acute cough] 05-14-2022 Episodic Ovarian cyst (3 sources) Ruptured cyst of ovary; Translations: [Unspecified ovarian cyst, unspecified side] Onset: 11-19-2024 11-07-2024 Episodic Past or Other Problems Problem Classification Problem Date Documented Da te Episodic/Chronic Early or threatened labor (2 sources) False labor before 37 completed weeks of gestation, unspecified trimester; Translations: [Threatened premature labor, antepartum condition or complication] Onset: 09-12-2006 Resolved: 11-23-2006 12-22-2023 Episodic Other complications of (2 sources) Supervision of other high risk pregnancies, unspecified trimester; Translations: [Supervision of other high-risk ] Onset: 08-26-2009 Resolved: 01-27-2010 01-27-2010 Episodic Other and delivery including normal (2 sources) Normal ; Translations: [Encounter for supervision of other normal , unspecified trimester] Onset: 04-23-2006 Resolved: 11-23-2006 12-22-2023 Episodic Results Test Name Value Interpretation Reference Range 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 Is patient in pain?: No Allergies No Known Allergies Allergy (Verified 11/13/24 14:35) Medications ???Medication ???Instructions ???Recorded ???Confirmed ???Type Flagyl PO 11/13/24 History Is last menstrual period known: Yes Last Menstrual Period: 11/12/24 Post menopausal: No Patient : No : No PFSH Surgical History H/O wisdom tooth extraction History of hymenectomy Family History Grandfather CAD (coronary artery disease) Cancer skin cancer Diabetes Hypertension Grandmother CVA (cerebral vascular accident) Father Hypertension Mother Thyroid disorder Social History household members: spouse housing: house number of children: 3 current occupational status: unemployed Smoking Status: Never smoker alcohol intake: never substance use type: does not use seatbelt use: always do you feel safe at home: Yes additional social history: - Brad HPI ER FU Enlarged Right Ovary Details: SENDY CARRENO is a 44 year old who presents for lower pelvic pain, seen and had an ovarian cyst. she was origianlly seen by primary care and treated for a uti and it was actually a vaginal infection. no dyspareunia. she hda a negative urine culture. regular menses cyclic less 5days q 28 Female Reproductive History Last Menstrual Period: 11/12/24 Menopausal Symptoms: No night sweats History 3 Elective abortions Hx Para 3 Spontaneous abortions Hx # Term Pregnancies Ectopic pregnancies Hx # Pregnancies Multiple births # of living children 3 Past Pregnancies Del. Date Name GA/Weeks Outcome Route Bth Weight Infant Gen Labor Lgth Anesthesia Del Locatn Provider FOB Unknown Huy 2005 live - Unknown Harpal 2007 live - Unknown Rick 2010 live - ROS Const Constitutional: Denies fatigue, night sweats, weight gain or weight loss Details: hot flashes, emotional lability ENT ENT: Reports system reviewed and no additional complaints, except as documented Cardio Card: Denies chest pain Resp Resp: Denies cough or dyspnea GI GI: Reports as per HPI and abdominal pain; Denies constipation, nausea or vomiting : Denies nipple discharge, urinary frequency, urinary incontinence, urinary hesitancy, urinary urgency, vaginal discharge, vaginal dryness, vaginal odor or vaginal pruritus Musc Musc: Denies arthralgias, back pain or muscle weakness Skin Skin/Breast: Denies alopecia, change in hair, dry skin, breast mass, breast pain, breast skin changes or nipple discharge Neuro Neuro: Reports system reviewed and no additional complaints, except as documented Psych Psych: Reports system reviewed and no additional complaints, except as documented Endo Endo: Denies cold intolerance, excessive sweating, heat intolerance or polydipsia Sergio/Lymph Hematologic/Lymphatic: Denies easy bleeding, Denies easy bruising and Denies lymphadenopathy Exam Const General: cooperative, healthy appearing, comfortable, no acute distress and well developed Nutritional Appearance: average body habitus Orientation: alert HENRI Head: normal to inspection and normocephalic Neck Neck: normal visual inspection and trachea midline Thyroid: thyroid normal Resp Effort Inspection: normal respiratory effort GI Inspection: normal to inspection and non-distended Palpation: soft and no hepatosplenomegaly Other: tender right lower abdomen near groin Skin General: no rashes or lesions noted Coding Level of Care Code Off vis,est,level 3 Diagnoses Suprapubic pain R10.2 Ovarian cyst rupture N83.209 Cyst of left ovary N83.202 Assessment and Plan Assessment and Plan (1) Suprapubic pain: Status: Acute Comment: repeat pelvic us. repeat UA- if hematuria recomend urogyn consult to ro stone, if negative culture and UA recommend PT consult if persistent pain (2) Ovarian cyst rupture: Status: Inactive Comment: pelvic US in 6-8 weeks (3) Cyst of left ovary: Status: Inactive Orders: Orders POC Urinalysis Dip (Cli (more content not included)... Normal [facility] Absolute lymphocyte countOrd ered By: Christopher Ochoa on 11-07-2024 Lymphocytes Auto (Unsp spec) [#/Vol] 2.59 10*3/uL 0.83-4.51 [facility] Absolute neutrophil countOrd ered By: Christopher Ochoa on 11-07-2024 Neutrophils (Bld) [#/Vol] 5.7 10*3/uL 2.0-7.7 [facility] Automated lymphocyte count a s percentage of total leukocytesOrdered By: Christopher Ochoa on 11-07-2024 Lymphocytes/100 WBC Auto (Unsp spec) 29.2 % 19-41 [facility] Basophil percentageOrdered B y: Christopher Ochoa on 11-07-2024 Basophils/100 WBC (Bld) 0.6 % 0-1 [facility] Bilirubin Test strip Ql (U)O rdered By: Christopher Ochoa on 11-07-2024 Bilirubin Ql (U) Negative Negative [facility] CBC W/Diff, Automatedon 10-12 Absolute Lymph 2.59 X10 3/uL Normal 0.83-4.51 [facility] Comment on above: Performed By: #### L 100.0100 #### [facility] [address] [place], [address] Absolute Neut 5.7 X10 3/uL Normal 2.0-7.7 [facility] Comment on above: Performed By: #### L 100.0100 #### [facility] [address] [place], [address] Basophils/100 WBC (Bld) 0.6 % Normal 0-1 [facility] Comment on above: Performed By: #### L 100.0100 #### [facility] [address] [place], [address] Eosinophils/100 WBC (Bld) 0.6 % Normal 0-5 [facility] Comment on above: Performed By: #### L 100.0100 #### [facility] [address] [place], [address] Erythrocyte distribution width (RBC) [Ratio] 11.5 % Low 11.6-14.6 [facility] Comment on above: Performed By: #### L 100.0100 #### [facility] [address] [place], [address] Hematocrit (Bld) [Volume fraction] 41.3 % Normal 37-47 [facility] Comment on above: Performed By: #### L 100.0100 #### [facility] [address] [place], [address] Hemoglobin (Bld) [Mass/Vol] 14.3 g/dL Normal 12.0-15.0 [facility] Comment on above: Performed By: #### L 100.0100 #### [facility] [address] [place], [address] IG% 0.200 Normal 0.0-0.9 [facility] Comment on above: Result Comment: IG% - Immature Granulocytes (promyelocytes, myelocytes and metamyelocytes) > 1% indicates that a LEFT SHIFT is Present. Performed By: #### L 100.0100 #### [facility] [address] [place], [address] Lymphocytes/100 WBC (Bld) 29.2 % Normal 19-41 [facility] Comment on above: Performed By: #### L 100.0100 #### [facility] [address] [place], [address] MCH (RBC) [Entitic mass] 30.8 pg Normal 27.0-32.0 [facility] Comment on above: Performed By: #### L 100.0100 #### [facility] [address] [place], [address] MCHC (RBC) [Mass/Vol] 34.6 g/dL Normal 32-36 [facility] Comment on above: Performed By: #### L 100.0100 #### [facility] [address] [place], [address] MCV (RBC) [Entitic vol] 89.0 fL Normal 81-99 [facility] Comment on above: Performed By: #### L 100.0100 #### [facility] [address] [place], [address] Monocytes/100 WBC (Bld) 5.9 % Normal 0-10 [facility] Comment on above: Performed By: #### L 100.0100 #### [facility] [address] [place], [address] Neutrophils/100 WBC (Bld) 63.5 % Normal 47-70 [facility] Comment on above: Performed By: #### L 100.0100 #### [facility] [address] [place], [address] Nucleated RBC (Bld) [#/Vol] 0 10*3/uL Normal 0-5 [facility] Comment on above: Performed By: #### L 100.0100 #### [facility] [address] [place], [address] Platelet mean volume (Bld) [Entitic vol] 8.8 fL Normal 6.2-12.0 [facility] Comment on above: Performed By: #### L 100.0100 #### [facility] [address] [place], [address] Platelets (Bld) [#/Vol] 313 10*3/uL Normal 150-450 [facility] Comment on above: Performed By: #### L 100.0100 #### [facility] [address] [place], [address] RBC (Bld) [#/Vol] 4.64 10*6/uL Normal 4.2-5.4 [facility] Comment on above: Performed By: #### L 100.0100 #### [facility] [address] [place], [address] RDW SD 37.1 fl Normal 35.1-43.9 [facility] Comment on above: Performed By: #### L 100.0100 #### [facility] [address] [place], [address] WBC (Bld) [#/Vol] 8.9 10*3/uL Normal 4.4-11.0 [facility] Comment on above: Performed By: #### L 100.0100 #### [facility] [address] [place], [address] Emergency Department Summary on 11-07-2024 Emergency Department Summary [facility] Medical Records Department [address] [place] [address] Emergency Department Summary 11/07/24 MR#: [id number] Acct: [id number] Name: SENDY CARRENO Rep #: [id number] : 1980 44 From: Christopher Ochoa MD PCP: Benita Shin NP-C Status:REG ER Location: ED HPI History of Present Illness Chief Complaint: Complaint Detail of Chief Complaint: UTI, right inguinal right lower abdominal pain Informant: patient and spouse/S.O. Onset/Context/Timing Onset: Days (Approximately 7 to 8 days) Context: Sudden Onset Timing: Continuous and Waxes and wanes Quality: Pain Location: Right inguinal area that goes up to the iliac crest on the right and to the Current Severity: Mild Maximum Severity: Moderate Worsened by: Movement and palpation Relieved by: Nothing Associated Symptoms Associated Symptoms: Patient states she was diagnosed with a UTI and treated with metronidazole Narrative Narrative: Patient is a 44-year-old G3, P3 female whose last normal menses was October 26. She states her cycle is approximate 25 days in duration. She does report vaginal discharge. She was able to look up her records from [facility]. Patient had bacterial vaginosis infection and reason she was treated with Flagyl. She does not have a UTI. She denies fever, chills night sweats. She denies nausea, vomiting diarrhea or constipation. She denies history of ovarian cyst, endometriosis or STI. She is and reports monogamous relationship. Patient denies any rash lesions or bumps. Prior similar symptoms: No Recent Illness/Hospitalization: Yes (She had a vaginal swab done and UA at urgent care.) PFSH PFSH Home Medications ???Medication ???Instructions ???Recorded ???Last Taken ???Type naproxen 500 mg tablet 500 mg PO BID #14 tabs 11/07/24 Un known Rx Allergy/AdvReac Type Severity Reaction Status Date / Time No Known Allergies Allergy Verified 11/07/24 16:30 Family History Grandfather CAD (coronary artery disease) Social History household members: spouse housing: house Smoking Status: Never smoker ROS ROS ED Constitutional Constitutional ED: Denies chills, fever(s), subjective, sweats or weight loss Gastrointestinal Gastrointestinal: Reports abdominal pain; Denies constipation, diarrhea or melena Genitourinary Genitourinary ED: Reports LMP (females 10-50) Details: Comment: (October 16 and was normal); Denies dysuria, hematuria or urinary frequency Musculoskeletal Musculoskeletal: Denies arthralgias, back pain or myalgias Integumentary Denies rash Neurologic Neurologic: Denies paresthesias or weakness EXAM Physical Exam Const Vital Signs: 11/07/24 16:30 11/07/24 20:29 Temperature 97 F L Temperature Source Temporal Pulse Rate 99 78 Respiratory Rate 15 Blood Pressure 178/93 H 114/66 Blood Pressure Mean 121 82 Pulse Ox 100 Oxygen Delivery Method Room Air Positive well nourished and well developed Constitutional Narrative: Patient reports she is anxious. Blood pressure is elevated. General Appearance ED: well developed and NAD; Negative for cyanotic, diaphoretic or pallor HEENT Reports moist mucous membranes HEENT Narrative: Head is atraumatic normocephalic. Ears normal. Nares patent. Eyes PERRL and EOMs intact bilaterally General Eye ED: Negative for pale conjunctiva or scleral icterus Neck no lymphadenopathy, supple and no JVD Chest Wall inspection of chest normal and palpation of chest normal Resp normal respiratory effort and clear to auscultation bilaterally Cardio regular rate, regular rhythm, S1 normal heart sound, S2 normal heart sound and no murmurs GI non-distended and no masses; Negative for non-tender or hepatosplenomegaly GI Narrative: There is no right inguinal lymphadenopathy or mass. Bowel sounds are slightly diminished. Inspection is normal. Narrative: External genitalia is normal. Patient has evidence of a cystocele. Vaginal mucosa is normal. Cervix is slightly friable. She does have a discharge noted. She complained of discomfort right adnexa. Question of the right ovary being larger. She has no tenderness or or fullness in the left adnexal area. She had a negative chandelier sign. Back/Spine no CVA tenderness Extremity normal to inspection Neuro oriented x3 and CN's II-XII intact bilaterally Sensorium / Orientation: alert Psych Mood Affect: anxious Skin no rashes or lesions noted, no wounds and skin turgor normal General Skin Exam: Negative for jaundice or pallor MDM MDM MDM Narrative Medical decision making narrative: Differential diagnosis would include inguinal hernia, femoral hernia, ovarian cyst, ectopic , aty (more content not included)... Normal [facility] Eosinophil percentageOrdered By: [facility] on 11-07-2024 Eosinophils/100 WBC (Bld) 0.6 % 0-5 [facility] Erythrocyte distribution wid th ratioOrdered By: [facility] on 11-07-2024 Erythrocyte distribution width (RBC) [Ratio] 11.5 % Low 11.6-14.6 [facility] Erythrocyte distribution wid th standard deviationOrdered By: [facility] on 11-07-2024 Erythrocyte distribution width (RBC) [Ratio] 37.1 fl 35.1-43.9 [facility] Hematocrit Auto (Bld) [Volum e fraction]Ordered By: [facility] on 11-07-2024 Hematocrit (Bld) [Volume fraction] 41.3 % 37-47 [facility] Hemoglobin measurementOrdere d By: [facility] on 11-07-2024 Hemoglobin (Bld) [Mass/Vol] 14.3 g/dL 12.0-15.0 [facility] Immature granulocytes/100 WB C Auto (Bld)Ordered By: [facility] on 11-07-2024 Immature granulocytes/100 WBC (Bld) 0.200 % 0.0-0.9 [facility] Comment on above: IG% - Immature Granu locytes (promyelocytes, myelocytes and metamyelocytes) > 1% indicates that a LEFT SHIFT is Present. Ketones Test strip Ql (U)Ord ered By: Christopher Ochoa on 11-07-2024 Ketones Ql (U) 15 mg/dl High Negative [facility] MCV (mean corpuscular volume ) determinationOrdered By: Christopher Ochoa on 11-07-2024 MCV (RBC) [Entitic vol] 89.0 fL 81-99 [facility] Mean corpuscular hemoglobin (MCH) determinationOrdered By: Christopher Ochoa on 11-07-2024 MCH (RBC) [Entitic mass] 30.8 pg 27.0-32.0 [facility] Mean corpuscular hemoglobin concentration (MCHC) determinationOrdered By: Christopher Ochoa on 11-07-2024 MCHC (RBC) [Mass/Vol] 34.6 g/dL 32-36 [facility] Mean platelet volume determi nationOrdered By: Christopher Ochoa on 11-07-2024 Platelet mean volume (Bld) [Entitic vol] 8.8 fL 6.2-12.0 [facility] Microscopic analysis of urin e for red blood cells (RBC)Ordered By: Christopher Ochoa on 11-07-2024 Microscopic analysis of urine for red blood cells (RBC) 0-5 SEEN /hpf 0-5 [facility] Monocyte percentageOrdered B y: Christopher Ochoa on 11-07-2024 Monocytes/100 WBC (Bld) 5.9 % 0-10 [facility] Mucus LM Ql (Urine sed)Order ed By: Christopher Ochoa on 11-07-2024 Mucus Ql (Urine sed) 0 SEEN /hpf [facility] Neutrophil percentageOrdered By: Christopher Ochoa on 11-07-2024 Neutrophils/100 WBC (Bld) 63.5 % 47-70 [facility] Nitrite Test strip Ql (U)Ord ered By: hCristopher Ochoa on 11-07-2024 Nitrite Ql (U) Negative Negative [facility] Nucleated red blood cell per centageOrdered By: Christopher Ochoa on 11-07-2024 Nucleated RBC/100 WBC (Bld) [Ratio] 0 % 0-5 [facility] Platelet countOrdered By: Tracy Ochoa on 11-07-2024 Platelets (Bld) [#/Vol] 313 10*3/uL 150-450 [facility] Protein Test strip Ql (U)Ord ered By: Christopher Ochoa on 11-07-2024 Protein Ql (U) Negative Negative [facility] RBC Auto (Bld) [#/Vol]Ordere d By: Christohper Ochoa on 11-07-2024 RBC (Bld) [#/Vol] 4.64 10*6/uL 4.2-5.4 [facility] Squamous epithelial cells de tection in urine sediment by light microscopyOrdered By: Christopher Ochoa on 11-07-2024 Epithelial cells.squamous LM Ql (Urine sed) 0-5 SEEN /hpf 5-10 [facility] Transvaginal Non-on 11-07-2024 Transvaginal Non- [facility] Imaging Services [address] [place] [address] Transvaginal Non- MR#: [id number] Acct: [id number] Name: SENDY CARRENO Rep #: [id number] : 1980 F 44 From: Samir Connolly DO PCP: Benita Shin HUB BANDER-C Status: REG ER Study: Transvaginal Non- Date of Exam: Exam# [id number] Ordering Dr: Christopher Ochoa MD PROCEDURE: TRANSVAGINAL NON- 11/07/2024 REASON FOR EXAM: TENDERNESS AND PAIN RIGHT OVARY WHICH MAY BE ENLAR TECHNIQUE: Transvaginal pelvic ultrasound COMPARISON: None FINDINGS: Measurements: Uterus: 8.3 x 5.6 x 4.5 cm with a volume of 108 mL Endometrial Thickness: 1.1 cm Right Ovary: 3.3 x 1.9 x 1.4 cm with a volume of 4.6 mL. Left Ovary: 4 x 2.6 x 2.4 cm with a volume of 13.4 mL. Uterus: Heterogeneous in echotexture. Normal in size. No suspicious lesions. Endometrium: Is thickened and heterogeneous measuring 1.1 cm. Right ovary: Normal size and echotexture. Left ovary: 2.5 cm complex and heterogeneous hypoechoic cystic lesion. Other: Moderate free fluid within the cul de sac. US/Transvaginal Non- IMPRESSION: No sonographic evidence of torsion. Thickened and heterogeneous endometrium measuring up to 1.1 cm, please correlate clinically with patient's menstrual cycle. If clinically indicated sonohysterogram may be helpful for further characterization. 2.5 cm complex heterogeneous left ovarian cysts, may represent hemorrhagic cysts. Moderate free fluid within the cul-de-sac. [facility] CC: TYRA Shin; Dr. Christopher Ochoa MD Software Licensing Specialist: Signed Normal [facility] Urinalysis, Completeon 11-07 EPI,SQUAMOUS 0-5 SEEN Normal 5-10 [facility] Comment on above: Order Comment: CLEAN CATCH Performed By: #### L 400.0001 #### [facility] [address] [place], [address] RBC 0-5 SEEN Normal 0-5 [facility] Comment on above: Order Comment: CLEAN CATCH Performed By: #### L 400.0001 #### [facility] [address] [place], [address] BACTERIA 0 SEEN Normal None Seen [facility] Comment on above: Order Comment: CLEAN CATCH Performed By: #### L 400.0001 #### [facility] [address] [place], [address] Mucus Ql (Urine sed) 0 SEEN Normal [facility] Comment on above: Order Comment: CLEAN CATCH Performed By: #### L 400.0001 #### [facility] [address] [place], [address] WBC 0 SEEN Normal 0-5 [facility] Comment on above: Order Comment: CLEAN CATCH Performed By: #### L 400.0001 #### [facility] [address] [place], [address] Urine clarityOrdered By: Christopher Ochoa on 11-07-2024 Clarity (U) Clear Clear [facility] Urine color determinationOrd ered By: Christopher Ochoa on 11-07-2024 Color (U) Yellow Yellow [facility] Urine glucose detectionOrder ed By: Christopher cOhoa on 11-07-2024 Glucose Ql (U) Normal mg/dl Normal [facility] Urine leukocyte esterase det ection by dipstickOrdered By: Christopher Ochoa on 11-07-2024 Leukocyte esterase Test strip Ql (U) Negative Negative [facility] Urine pHOrdered By: Christopher virk on 11-07-2024 pH (U) 6.5 [pH] 5.0 - 8.0 [facility] Urine sediment bacteria coun t by microscopy (number/high power field)Ordered By: Christopher Ochoa on 11-07-2024 Bacteria LM.HPF (Urine sed) [#/Area] 0 /[HPF] None Seen [facility] Urine specific gravity measu rementOrdered By: Christophermoose Ochoa on 11-07-2024 Specific gravity (U) [Rel density] 1.005 1.002-1.030 [facility] Urine urobilinogen measureme ntOrdered By: Christopher Ochoa on 11-07-2024 Urobilinogen Ql (U) Normal mg/dl Normal [facility] White blood cell (WBC) count Ordered By: Christopher Ochoa on 11-07-2024 WBC (Bld) [#/Vol] 8.9 10*3/uL 4.4-11.0 [facility] White blood cell countOrdere d By: Christopher Ochoa on 11-07-2024 White blood cell count 0 SEEN /hpf 0-5 [facility] Bacteria Ur Culton Bacteria identified Cx Nom (U) ORGANISM ID: 1 <10,000 CFU/ml Normal urogenital melo Normal [facility] Comment on above: Performed By: #### 6 30-4 #### [facility] CLIA [id number] [address] [place] [address] [place] CNOVon 10-29-2024 CNOV Office Visit ([facility]WSTR ) ----- SENDY CARRENO ([id number]) 1980 F Date Time Provider Department 10/29/24 10:45 AM NAYELICARMENZAYEIMY [facility] During your visit today, we recorded the following information about you: Temperature Pulse Respiration Blood pressure 97.1 degrees 86/minute 16/minute 122/70 Weight 69.2 kg Yeimy Tyler, JANITOR SUPERVISOR.NURSE ADVOCATE 10/29/2024 11:15 AM Signed Subjective HPI Nontoxic-appearing female presents urgent care chief plaint possible UTI. Duration of symptoms 10 days. Associated symptoms dysuria and frequency. Has had a UTI but this has not been for many years. OTC medications with no success. Denies any vomiting abdominal pain nausea flank pain vaginal discharge itching. No concerns for STDs. Last menstrual cycle 1 week ago. Denies chance of . Is not breast-feeding. Past medical history prescription medications allergies reviewed .Patient presents with: Urinary Problem: pain and burning with urination x 10 days PAST MEDICAL HISTORY Diagnosis Date NEGATIVE MEDICAL HISTORY PAST SURGICAL HISTORY Procedure Laterality Date PAST SURGICAL HISTORY OF 05/15 HYMENECTOMY UNSPECIFIED ORAL SURGERY PROCEDURE, BY REPORT [place] [facility] ALLERGIES Patient has no known allergies. MEDICATIONS No prescriptions on file. FAMILY HISTORY Problem Relation Age of Onset Hypertension Father Diabetes Maternal Grandfather Thyroid Mother Social History Tobacco Use Smoking status: Never Smokeless tobacco: Never Substance Use Topics Alcohol use: No Drug use: No BP 122/70 Pulse 86 Temp 36.2 ?C (97.1 ?F) Resp 16 Wt 69.2 kg (152 lb 8.9 oz) LMP 09/07/2017 SpO2 100% BMI 26.19 kg/m? Review of Systems Constitutional: Negative for chills, fever and malaise/fatigue. Cardiovascular: Negative for chest pain. Gastrointestinal: Negative for abdominal pain, constipation, diarrhea, nausea and vomiting. Genitourinary: Positive for frequency and urgency. Negative for dysuria, flank pain and hematuria. Musculoskeletal: Negative for myalgias. Objective Physical Exam Vitals and nursing note reviewed. Constitutional: General: She is not in acute distress. Appearance: She is not diaphoretic. HENT: Head: Jaw: No trismus. Right Ear: Hearing normal. No decreased hearing noted. No drainage, swelling or tenderness. Tympanic membrane is not perforated, erythematous or bulging. Left Ear: Hearing normal. No decreased hearing noted. No drainage, swelling or tenderness. Tympanic membrane is not perforated, erythematous or bulging. Mouth/Throat: Pharynx: Uvula midline. No uvula swelling. Tonsils: No tonsillar abscesses. Cardiovascular: Rate and Rhythm: Normal rate and regular rhythm. Pulses: Normal pulses. Pulmonary: Effort: Pulmonary effort is normal. No respiratory distress. Breath sounds: Normal breath sounds. Chest: Chest wall: No tenderness. Abdominal: General: Bowel sounds are normal. There is no distension. Palpations: Abdomen is soft. Abdomen is not rigid. Tenderness: There is no abdominal tenderness. There is no right CVA tenderness, left CVA tenderness, guarding or rebound. Negative signs include Rebollar's sign and McBurney's sign. Musculoskeletal: General: No tenderness. Lymphadenopathy: Head: Right side of head: No submental, submandibular, tonsillar, preauricular, posterior auricular or occipital adenopathy. Left side of head: No submental, submandibular, tonsillar, preauricular, posterior auricular or occipital adenopathy. Cervical: Right cervical: No superficial or posterior cervical adenopathy. Left cervical: No superficial or posterior cervical adenopathy. Skin: General: Skin is warm and dry. Findings: No rash. Neurological: Mental Status: She is alert and oriented to person, place, and time. ASSESSMENT/PLAN: 1. Burning with urination - ICD9: 788.1, ICD10: R30.0 - UA DIP, URINE (POC) - BACTERIAL CULTURE, URINE Urine dip unremarkable. Differentials discussed with patient. Urine culture ordered. Treat accordingly culture results. Recommend following up with PILOT SAFETY INSPECTOR if symptoms persist. Patient was educated on supportive therapies. Patient will follow up with primary care provider as needed. Patient was instructed to immediately proceed to emergency room for any new, worsening, or symptoms lasting longer than anticipated. The patient's clinical presentation is otherwise unremarkable at this time. Based on exam and clinical finding, the patient is stable for discharge. Plan of care was discussed with patient. Patient verbalizes understanding and agrees to plan of care. This note was generated using PacerPro software. It may contain errors in wording, punctuation, or spelling. Yeimy Tyler APRN.NURSE ADVOCATE Allergies As of Date: 10/29/2024 (No Known Allergies) Date Reviewed: 10/29/2024 Reviewed by: Yeimy Tyler, (more content not included)... Normal [facility] UA DIP, URINE (POC)on 2024 BILIRUBIN UA (POCT) Negative Negative [facility] CLARITY UA (POCT) Clear [facility] COLOR UA (POCT) Yellow [facility] GLUCOSE UA (POCT) Negative Negative mg/dL [facility] Hemoglobin Ql (U) Negative Negative [facility] Interpretation and review of laboratory results Abnormal [facility] KETONE UA (POCT) Negative Negative mg/dL [facility] LEUKOCYTES UA (POCT) Negative Negative [facility] NITRITE UA (POCT) Negative Negative [facility] PH UA (POCT) 6 4.5 - 8.0 [facility] Protein Ql (U) Negative Negative mg/dL [facility] SPECIFIC GRAVITY UA (POCT) <=1.005 Abnormal 1.005 - 1.030 [facility] UROBILINOGEN UA (POCT) 0.2 Kitty l E.U./dL [facility] Location:[facility], [address] [place] [address], [place], [place], [id number] [place] [address] POINT OF CARE [facility] Absolute lymphocyte countOrd ered By: Benita Shin on 07-25-2023 Lymphocytes Auto (Unsp spec) [#/Vol] 1.49 10*3/uL 0.83-4.51 [facility] Automated lymphocyte count a s percentage of total leukocytesOrdered By: Benita Shin on 07-25-2023 Lymphocytes/100 WBC Auto (Unsp spec) 35.4 % 19-41 [facility] Basophil percentageOrdered B y: Benita Shin on 07-25-2023 Basophils/100 WBC (Bld) 0.7 % 0-1 [facility] Bilirubin [Mass/Vol] 0.50 mg/dL 0.20-1.00 [facility] Comment on above: For patients on eltr ombopag therapy, use of Dimension [place] TBIL is not recommended. Chloride [Moles/Vol] 106 mmol/L 98-107 [facility] Cholesterol [Mass/Vol] 292 mg/dL <200 [facility] Comment on above: <200 mg/dL Desirable 200-240 mg/dL Borderline >240 mg/dL High Risk Eosinophils/100 WBC (Bld) 2.1 % 0-5 [facility] Glucose [Mass/Vol] 92 mg/dL 74-106 [facility] Hemoglobin (Bld) [Mass/Vol] 13.2 g/dL 12.0-15.0 [facility] Monocytes/100 WBC (Bld) 5.2 % 0-10 [facility] Neutrophils (Bld) [#/Vol] 2.4 10*3/uL 2.0-7.7 [facility] Neutrophils/100 WBC (Bld) 56.4 % 47-70 [facility] Potassium [Moles/Vol] 3.9 mmol/L 3.5-5.1 [facility] Protein [Mass/Vol] 8.3 g/dL 6.4-8.2 [facility] Sodium [Moles/Vol] 139 mmol/L 136-145 [facility] Triglyceride [Mass/Vol] 68 mg/dL <199 [facility] Comment on above: The drugs N-Acetylcy steine and Metamizole may falsely depress this assay.Serum Triglycerides Reference Interval Normal <150 mg/dL Borderline high 150 - 199 mg/dL High 200 - 499 mg/dL Very High > or = 500 mg/dL WBC (Bld) [#/Vol] 4.2 10*3/uL 4.4-11.0 [facility] Determination of erythrocyte mean corpuscular volume (MCV)Ordered By: Benita Shin on 07-25-2023 MCV (RBC) [Entitic vol] 89.8 fL 81-99 [facility] Erythrocyte distribution wid th ratioOrdered By: Benita Shin on 07-25-2023 Erythrocyte distribution width (RBC) [Ratio] 11.9 % 11.6-14.6 [facility] Erythrocyte distribution wid th standard deviationOrdered By: Benita Shin on 07-25-2023 Erythrocyte distribution width (RBC) [Entitic vol] 38.6 fL 35.1-43.9 [facility] Hematocrit Auto (Bld) [Volum e fraction]Ordered By: Benita Shin on 07-25-2023 Hematocrit (Bld) [Volume fraction] 40.3 % 37-47 [facility] Immature granulocytes/100 WB C Auto (Bld)Ordered By: Benita Shin on 07-25-2023 Immature granulocytes/100 WBC (Bld) 0.200 % 0.0-0.9 [facility] Comment on above: IG% - Immature Granu locytes (promyelocytes, myelocytes and metamyelocytes) > 1% indicates that a LEFT SHIFT is Present. Iron measurement (mass/mass) Ordered By: Benita Shin on 07-25-2023 Iron (Unsp spec) [Mass/Mass] 70 ug/dL 50-170 [facility] Laboratory - Chemistry and C hemistry - challengeOrdered By: Benita Shin on 07-25-2023 Albumin/Globulin [Mass ratio] 1.0 {ratio} 0.9-2.4 [facility] ALP [Catalytic activity/Vol] 57 U/L 45-117 [facility] ALT [Catalytic activity/Vol] 22 U/L 13-56 [facility] Cholesterol in HDL [Mass/Vol] 63 mg/dL >40 [facility] Comment on above: The drugs N-Acetylcy steine and Metamizole may falsely depress this assay. Reference Range HDL <40 mg/dL Low HDL Cholesterol HDL >or= 60 mg/dL High HDL Cholesterol Cholesterol in LDL [Mass/Vol] 215 mg/dL 0-130 [facility] CO2 [Moles/Vol] 26.0 mmol/L 21.0-32.0 [facility] Ferritin [Mass/Vol] 44 ng/mL 8-252 [facility] Globulin (S) [Mass/Vol] 4.1 g/dL 2.2-4.2 [facility] Urea nitrogen/Creatinine [Mass ratio] 15.3 mg/mg 10-20 [facility] - Hematology and Cell countsOrdered By: Benita Shin on 07-25-2023 MCH (RBC) [Entitic mass] 29.4 pg 27.0-32.0 [facility] MCHC (RBC) [Mass/Vol] 32.8 g/dL 32-36 [facility] Nucleated RBC/100 WBC (Bld) [Ratio] 0 % 0-5 [facility] Platelet mean volume (Bld) [Entitic vol] 9.3 fL 6.2-12.0 [facility] Platelets (Bld) [#/Vol] 341 10*3/uL 150-450 [facility] No Panel InformationOrdered By: Benita Shin on 07-25-2023 Estimated GFR (MDRD) Amer 126 mL/min >60 [facility] Comment on above: GFR Calc Estimated GFR (MDRD) Non-Af Amer 104 mL/min >60 [facility] Comment on above: Non- GFR Calc Free Triiodothyronine (T3) pg/dL 2.8 pg/mL 2.18-3.98 [facility] Thyroglobulin Antibody < 1.0 IU/mL 0.0-0.9 [facility] Comment on above: Thyroglobulin Antibo dy measured by LabourNetMethodologyIt should be noted that the presence of thyroglobulinantibodies may not be pathogenic nor diagnostic, especiallyat very low levels. The assay awning installer has found thatfour percent of individuals without evidence of thyroiddisease or autoimmunity will have positive TgAb levels upto 4 IU/mL. VLDL Cholesterol 14 mg/dL 5-40 [facility] RBC Auto (Bld) [#/Vol]Ordere d By: Benita Shin on 07-25-2023 RBC (Bld) [#/Vol] 4.49 10*6/uL 4.2-5.4 [facility] Serum or plasma calcium chelsey urement (mass/volume)Ordered By: Benita Shin on 07-25-2023 Calcium [Mass/Vol] 9.1 mg/dL 8.5-10.1 [facility] Serum or plasma creatinine m easurement (mass/volume)Ordered By: Benita Shin on 07-25-2023 Creatinine [Mass/Vol] 0.66 mg/dL 0.55-1.02 [facility] Comment on above: The validity of the calculated GFR & GFRAA in patients over 70 years has not been determined. Clinical correlation is essential. Serum or plasma thyroid stim ulating hormone (TSH) measurement (units/volume)Ordered By: Benita Shin on 07-25-2023 TSH Qn 1.21 uIU/mL 0.358-3.74 [facility] Serum or plasma thyroperoxid ase antibody assay (units/volume)Ordered By: Benita Shin on 07-25-2023 TPO Ab Qn [IU]/mL 0-34 [facility] Comment on above: Performed at: [address] [id number] Director: Yusuf Mark PhD, Phone: [phone] Serum or plasma urea nitroge n measurement (mass/volume)Ordered By: Benita Shin on 07-25-2023 Urea nitrogen [Mass/Vol] 10 mg/dL 7-18 [facility] Thin prep Papanicolaou smear with manual screeningOrdered By: Benita Shin on 07-25-2023 Thin prep Papanicolaou smear with manual screening 4.2 g/dL 3.2-5.0 [facility] Thin prep Papanicolaou smear with manual screening 14 U/L 15-37 [facility] Thin prep Papanicolaou smear with manual screening 7 5-15 [facility] Thin prep Papanicolaou smear with manual screening 1.00 ng/dL 0.76-1.46 [facility] Absolute lymphocyte counton 05-14-2022 Lymphocytes Auto (Unsp spec) [#/Vol] 0.87 10*3/uL 0.83-4.51 [facility] Work Phone: Basophil percentageon 2021 Basophils/100 WBC (Bld) 0.3 % 0-1 [facility] Work Phone: Chloride [Moles/Vol] 102 mmol/L 98-107 [facility] Work Phone: Eosinophils/100 WBC (Bld) 0.2 % 0-5 [facility] Work Phone: Glucose [Mass/Vol] 79 mg/dL 74-106 [facility] Work Phone: Neutrophils (Bld) [#/Vol] 4.7 10*3/uL 2.0-7.7 [facility] Work Phone: Neutrophils/100 WBC (Bld) 76.9 % 47-70 [facility] Work Phone: Potassium [Moles/Vol] 3.7 mmol/L 3.5-5.1 Antoine ster [facility] Work Phone: [phone] Sodium [Moles/Vol] 135 mmol/L 136-145 [facility] Work Phone: [phone] WBC (Bld) [#/Vol] 6.1 10*3/uL 4.4-11.0 [facility] Work Phone: [phone] Blood erythrocytes count (nu mber/volume)on 05-14-2022 RBC (Bld) [#/Vol] 4.67 10*6/uL 4.2-5.4 [facility] Work Phone: [phone] Blood hemoglobin measurement (mass/volume)on 05-14-2022 Hemoglobin (Bld) [Mass/Vol] 14.3 g/dL 12.0-15.0 [facility] Work Phone: [phone] Blood lymphocytes/100 leukoc yteson 05-14-2022 Lymphocytes/100 WBC (Bld) 14.2 % 19-41 [facility] Work Phone: [phone] Blood monocytes/100 leukocyt eson 05-14-2022 Monocytes/100 WBC (Bld) 8.2 % 0-10 [facility] Work Phone: [phone] Blood platelet mean volumeon 05-14-2022 Platelet mean volume (Bld) [Entitic vol] 8.7 fL 6.2-12.0 [facility] Work Phone: [phone] Determination of erythrocyte mean corpuscular volume (MCV)on 05-14-2022 MCV (RBC) [Entitic vol] 89.1 fL 81-99 [facility] Work Phone: [phone] Hematocrit Auto (Bld) [Volum e fraction]on 05-14-2022 Hematocrit (Bld) [Volume fraction] 41.6 % 37-47 [facility] Work Phone: Laboratory - Chemistry and C hemistry - challengeon 05-14-2022 CO2 [Moles/Vol] 22.0 mmol/L 21.0-32.0 [facility] Work Phone: [phone] Urea nitrogen/Creatinine [Mass ratio] 16.3 mg/mg 10-20 [facility] Work Phone: [phone] Laboratory - Hematology and Cell countson 05-14-2022 Erythrocyte distribution width (RBC) [Entitic vol] 37.4 fL 35.1-43.9 [facility] Work Phone: [phone] Erythrocyte distribution width (RBC) [Ratio] 11.5 % 11.6-14.6 [facility] Work Phone: [phone] Immature granulocytes/100 WBC (Bld) 0.200 % 0.0-0.9 [facility] Work Phone: [phone] Comment on above: IG% - Immature Granu locytes (promyelocytes, myelocytes and metamyelocytes) > 1% indicates that a LEFT SHIFT is Present. MCH (RBC) [Entitic mass] 30.6 pg 27.0-32.0 [facility] Work Phone: [phone] Nucleated RBC/100 WBC (Bld) [Ratio] 0 % 0-5 [facility] Work Phone: [phone] MCHC Auto (RBC) [Mass/Vol]on 05-14-2022 MCHC (RBC) [Mass/Vol] 34.4 g/dL 32-36 [facility] Work Phone: [phone] No Panel Informationon 05-14 D-Dimer Quantitative (PE/DVT) 0.39 FEU/ug/m 0.27-0.49 [facility] Work Phone: [phone] Comment on above: NORMAL D-Dimer level (<0.50) indicates no DVT or PE. Estimated Creatinine Clearance Calc 85.52 ml/min [facility] Work Phone: [phone] Estimated GFR (MDRD) Amer 111 mL/min >60 [facility] Work Phone: [phone] Comment on above: GFR Calc Estimated GFR (MDRD) Non-Af Amer 91 mL/min >60 [facility] Work Phone: [phone] Comment on above: Non- GFR Calc Troponin I High Sensitivity 18 pg/mL 3.0-54.0 [facility] Work Phone: Comment on above: Please Note: New Shanelle t Units and Gender Specific Reference Ranges. For more information see Policy Stat Procedure [place] High Sensitivity Troponin (TNIH) and attachments. Platelets bldon 05-14-2022 Platelets (Bld) [#/Vol] 250 10*3/uL 150-450 [facility] Work Phone: Serum or plasma calcium chelsey urement (mass/volume)on 05-14-2022 Calcium [Mass/Vol] 9.2 mg/dL 8.5-10.1 [facility] Work Phone: Serum or plasma creatinine m easurement (mass/volume)on 05-14-2022 Creatinine [Mass/Vol] 0.74 mg/dL 0.55-1.02 [facility] Work Phone: Comment on above: The validity of the calculated GFR & GFRAA in patients over 70 years has not been determined. Clinical correlation is essential. Serum or plasma urea nitroge n measurement (mass/volume)on 05-14-2022 Urea nitrogen [Mass/Vol] 12 mg/dL 7-18 [facility] Work Phone: Thin prep Papanicolaou smear with manual screeningon 05-14-2022 Thin prep Papanicolaou smear with manual screening 11 5-15 [facility] Work Phone: XR CHEST 2V FRONTAL/LATon [facility] XR Chest PA and Lateralon IMPRESSION: No acute cardiopulmonary process. Software Licensing Specialist: PSCB Transcribe Date/Time: May 14 2022 5:09P Dictated by : SOURAV YOUNG MD This examination was interpreted and the report reviewed and electronically signed by: SOURAV YOUNG MD on May 14 2022 5:11PM [facility] DIVISION OF RADIOLOGY * * *Final Report* * * DATE OF EXAM: May 14 2022 5:02PM WOX [id number] - XR CHEST 2V FRONTAL/LAT / PROCEDURE REASON: multiple diagnoses * * * * Physician Interpretation * * * * EXAM: XR CHEST 2V FRONTAL/LAT Exam Date/Time: 05/14/2022 5:02 PM CLINICAL HISTORY: Chest pain Comparison: No available prior. RESULT: Lines, tubes, and devices: None. Lungs and pleura: Bilateral lung ritter are clear. No suggestion for pleural effusions or pneumothorax. Cardiomediastinal silhouette: Normal cardiomediastinal silhouette. DIVISION OF RADIOLOGY Provider, [facility] - 05/14/2022 * * *Final Report* * * DATE OF EXAM: May 14 2022 5:02PM WOX [id number] - XR CHEST 2V FRONTAL/LAT / PROCEDURE REASON: multiple diagnoses * * * * Physician Interpretation * * * * EXAM: XR CHEST 2V FRONTAL/LAT Exam Date/Time: 05/14/2022 5:02 PM CLINICAL HISTORY: Chest pain Comparison: No available prior. RESULT: Lines, tubes, and devices: None. Lungs and pleura: Bilateral lung ritter are clear. No suggestion for pleural effusions or pneumothorax. Cardiomediastinal silhouette: Normal cardiomediastinal silhouette. IMPRESSION IMPRESSION: No acute cardiopulmonary process. Software Licensing Specialist: CIERA Transcribe Date/Time: May 14 2022 5:09P Dictated by : SOURAV YOUNG MD This examination was interpreted and the report reviewed and electronically signed by: SOURAV YOUNG MD on May 14 2022 5:11PM EST [facility] Radiology Study observation (narrative) [facility] XR Chest PA and LateralOrder ed By: [facility] Provider on 05-14-2022 [facility] [id number] 05-31-2017 Microsomal Ab 24 IU/mL Normal 0-35 [facility] ([place]) Comment on above: Result Comment: This result represents Anti-TPO antibodies which aresynonymous with microsomal antibodies. Performed By: #### C BC, ADIFF, ANEU, LIPID, CMP, GFR, TSH, FT4, FT3 ####[id number] [place], [place] [address]#### B12, VIDH, CRP, MCRSO ####[address] [address] CRPon 05-25-2017 C reactive protein (CRP) 0.60 mg/dL Normal <=0.80 [facility] ([place]) Comment on above: Performed By: #### C BC, ADIFF, ANEU, LIPID, CMP, GFR, TSH, FT4, FT3 ####[place] [address]#### B12, VIDH, CRP, MCRSO ####[address] [address] .Auto Diffon 05-24-2017 Basophils Auto #/vol (Bld) 0.00 10 3/mcL Normal 0.00-0.19 [facility] ([place]) Comment on above: Performed By: #### C BC, ADIFF, ANEU, LIPID, CMP, GFR, TSH, FT4, FT3 ####[place] [address]#### B12, VIDH, CRP, MCRSO ####[address] [address] Basophils/100 WBC Auto (Bld) 0.7 % Normal 0.0-2.5 [facility] ([place]) Comment on above: Performed By: #### C BC, ADIFF, ANEU, LIPID, CMP, GFR, TSH, FT4, FT3 ####[place] [address]#### B12, VIDH, CRP, MCRSO ####[address] [address] Eosinophils 0.10 10 3/mcL Normal 0.00-0.40 [facility] ([place]) Comment on above: Performed By: #### C BC, ADIFF, ANEU, LIPID, CMP, GFR, TSH, FT4, FT3 ####[place] [address]#### B12, VIDH, CRP, MCRSO ####[address] [address] Eosinophils/100 leukocytes 2.2 % Normal 0.0-7.0 [facility] ([place]) Comment on above: Performed By: #### C BC, ADIFF, ANEU, LIPID, CMP, GFR, TSH, FT4, FT3 ####[place] [address]#### B12, VIDH, CRP, MCRSO ####[address] [address] Lymphocytes 2.10 10 3/mcL Normal 0.77-3.85 [facility] ([place]) Comment on above: Performed By: #### C BC, ADIFF, ANEU, LIPID, CMP, GFR, TSH, FT4, FT3 ####[place] [address]#### B12, VIDH, CRP, MCRSO ####[address] [address] Lymphocytes/100 leukocytes 38.8 % Normal 10.0-50.0 [facility] ([place]) Comment on above: Performed By: #### C BC, ADIFF, ANEU, LIPID, CMP, GFR, TSH, FT4, FT3 ####[place] [address]#### B12, VIDH, CRP, MCRSO ####[address] [address] Monocytes 0.30 10 3/mcL Normal 0.15-1.00 [facility] ([place]) Comment on above: Performed By: #### C BC, ADIFF, ANEU, LIPID, CMP, GFR, TSH, FT4, FT3 ####[place] [address]#### B12, VIDH, CRP, MCRSO ####[address] [address] Monocytes/100 leukocytes 6.5 % Normal 1.7-13.0 [facility] ([place]) Comment on above: Performed By: #### C BC, ADIFF, ANEU, LIPID, CMP, GFR, TSH, FT4, FT3 ####[place] [address]#### B12, VIDH, CRP, MCRSO ####[address] [address] Neutrophils/100 WBC Auto (Bld) 51.8 % Normal 37.0-80.0 [facility] ([place]) Comment on above: Performed By: #### C BC, ADIFF, ANEU, LIPID, CMP, GFR, TSH, FT4, FT3 ####Jenni [id number] [place], [place] [address]#### B12, VIDH, CRP, MCRSO ####[address] [address] .GFRon 05-24-2017 eGFR (non-black) mL/min/{1.73_m2} Normal [facility] ([place]) Comment on above: Result Comment: GFR Population mean for , Non- Americans Ages 20-29 = 116 mL/min/1.73 sq.m. Ages 30-39 = 107 mL/min/1.73 sq.m. Ages 40-49 = 99 mL/min/1.73 sq.m. Ages 50-59 = 93 mL/min/1.73 sq.m. Ages 60-69 = 85 mL/min/1.73 sq.m. Ages 70+ = 75 mL/min/1.73 sq.m.Chronic Kidney Disease: Less than 60 mL/min/1.73 square metersEnd Stage Renal Disease: Less than 15 mL/min/1.73 square meters Performed By: #### C BC, ADIFF, ANEU, LIPID, CMP, GFR, TSH, FT4, FT3 ####Jenni [id number] [place], [place] [address]#### B12, VIDH, CRP, MCRSO ####[address] [address] eGFR (non-black) 129 ml/min/1.73sqm Normal [facility] ([place]) Comment on above: Result Comment: GFR Population mean for , Non- Americans Ages 20-29 = 116 mL/min/1.73 sq.m. Ages 30-39 = 107 mL/min/1.73 sq.m. Ages 40-49 = 99 mL/min/1.73 sq.m. Ages 50-59 = 93 mL/min/1.73 sq.m. Ages 60-69 = 85 mL/min/1.73 sq.m. Ages 70+ = 75 mL/min/1.73 sq.m.Chronic Kidney Disease: Less than 60 mL/min/1.73 square metersEnd Stage Renal Disease: Less than 15 mL/min/1.73 square meters Performed By: #### C BC, ADIFF, ANEU, LIPID, CMP, GFR, TSH, FT4, FT3 ####[place] [address]#### B12, VIDH, CRP, MCRSO ####[place] [address] .NEUABSon 05-24-2017 Neutrophils 2.80 10 3/mcL Low 2.85-6.16 [facility] ([place]) Comment on above: Performed By: #### C BC, ADIFF, ANEU, LIPID, CMP, GFR, TSH, FT4, FT3 ####[place] [address]#### B12, VIDH, CRP, MCRSO ####[place] [address] B12on 05-24-2017 Cobalamins (Vitamin B12) pg/mL High 211-911 [facility] ([place]) Comment on above: Performed By: #### C BC, ADIFF, ANEU, LIPID, CMP, GFR, TSH, FT4, FT3 ####[place] [address]#### B12, VIDH, CRP, MCRSO ####[place] [address] CBCon 05-24-2017 Erythrocyte distribution width Auto Ratio (RBC) 12.8 % Normal 11.5-14.5 [facility] ([place]) Comment on above: Performed By: #### C BC, ADIFF, ANEU, LIPID, CMP, GFR, TSH, FT4, FT3 ####[place] [address]#### B12, VIDH, CRP, MCRSO ####[place] [address] Erythrocytes (RBC) 4.39 10 6/mcL Normal 4.20-5.40 [facility] ([place]) Comment on above: Performed By: #### C BC, ADIFF, ANEU, LIPID, CMP, GFR, TSH, FT4, FT3 ####[place] [address]#### B12, VIDH, CRP, MCRSO ####[place] [address] Hematocrit (HCT) 39.8 % Normal 37.0-47.0 [facility] ([place]) Comment on above: Performed By: #### C BC, ADIFF, ANEU, LIPID, CMP, GFR, TSH, FT4, FT3 ####[place] [address]#### B12, VIDH, CRP, MCRSO ####[place] [address] Hemoglobin mass conc (Bld) 13.2 G/dL Normal 12.0-16.0 [facility] ([place]) Comment on above: Performed By: #### C BC, ADIFF, ANEU, LIPID, CMP, GFR, TSH, FT4, FT3 ####[place] [address]#### B12, VIDH, CRP, MCRSO ####[place] [address] MCH 30.1 pg Normal 27.0-31.2 [facility] ([place]) Comment on above: Performed By: #### C BC, ADIFF, ANEU, LIPID, CMP, GFR, TSH, FT4, FT3 ####[place] [address]#### B12, VIDH, CRP, MCRSO ####[place] [address] MCHC mass conc (RBC) 33.3 G/dL Normal 33.0-37.0 [facility] ([place]) Comment on above: Performed By: #### C BC, ADIFF, ANEU, LIPID, CMP, GFR, TSH, FT4, FT3 ####[place] [address]#### B12, VIDH, CRP, MCRSO ####[address] [address] MCV 90.6 fL Normal 80.0-94.0 [facility] ([place]) Comment on above: Performed By: #### C BC, ADIFF, ANEU, LIPID, CMP, GFR, TSH, FT4, FT3 ####[place] [address]#### B12, VIDH, CRP, MCRSO ####[place] [address] Platelet mean volume (PMV) 7.6 fL Normal 7.4-10.4 [facility] ([place]) Comment on above: Performed By: #### C BC, ADIFF, ANEU, LIPID, CMP, GFR, TSH, FT4, FT3 ####[place] [address]#### B12, VIDH, CRP, MCRSO ####[place] [address] Platelets 271 10 3/mcL Normal 130-400 [facility] ([place]) Comment on above: Performed By: #### C BC, ADIFF, ANEU, LIPID, CMP, GFR, TSH, FT4, FT3 ####[place] [address]#### B12, VIDH, CRP, MCRSO ####[place] [address] WBC (Leukocytes) 5.30 10 3/mcL Normal 4.60-10.80 [facility] ([place]) Comment on above: Performed By: #### C BC, ADIFF, ANEU, LIPID, CMP, GFR, TSH, FT4, FT3 ####[place] [address]#### B12, VIDH, CRP, MCRSO ####[place] [address] CMPon 05-24-2017 Alanine aminotransferase (ALT) 10 U/L Normal 10-35 [facility] ([place]) Comment on above: Performed By: #### C BC, ADIFF, ANEU, LIPID, CMP, GFR, TSH, FT4, FT3 ####[place] [address]#### B12, VIDH, CRP, MCRSO ####[place] [address] Albumin 4.5 G/dL Normal 3.5-5.0 [facility] ([place] Comment on above: Performed By: #### C BC, ADIFF, ANEU, LIPID, CMP, GFR, TSH, FT4, FT3 ####[place] [address]#### B12, VIDH, CRP, MCRSO ####[place] [address] Albumin/Globulin Ratio 1.6 {ratio} Normal 1.1-2.5 [facility] ([place]) Comment on above: Performed By: #### C BC, ADIFF, ANEU, LIPID, CMP, GFR, TSH, FT4, FT3 ####[place] [address]#### B12, VIDH, CRP, MCRSO ####[place] [address] Alk Phos 60 IU/L Normal 40-135 [facility] ([place]) Comment on above: Performed By: #### C BC, ADIFF, ANEU, LIPID, CMP, GFR, TSH, FT4, FT3 ####[place] [address]#### B12, VIDH, CRP, MCRSO ####[place] [address] Aspartate aminotransferase (AST) 14 U/L Normal 10-40 [facility] ([place]) Comment on above: Performed By: #### C BC, ADIFF, ANEU, LIPID, CMP, GFR, TSH, FT4, FT3 ####[place] [address]#### B12, VIDH, CRP, MCRSO ####[place] [id number] Bili Total 0.3 mg/dL Normal 0.2-1.0 [facility] ([place]) Comment on above: Performed By: #### C BC, ADIFF, ANEU, LIPID, CMP, GFR, TSH, FT4, FT3 ####[place] [address]#### B12, VIDH, CRP, MCRSO ####[place] [address] BUN/Creatinine Ratio 13 ratio Normal 7-27 [facility] ([place]) Comment on above: Performed By: #### C BC, ADIFF, ANEU, LIPID, CMP, GFR, TSH, FT4, FT3 ####[place] [address]#### B12, VIDH, CRP, MCRSO ####[place] [address] Calcium 8.9 mg/dL Normal 8.4-10.2 [facility] ([place]) Comment on above: Performed By: #### C BC, ADIFF, ANEU, LIPID, CMP, GFR, TSH, FT4, FT3 ####[place] [address]#### B12, VIDH, CRP, MCRSO ####[place] [address] Chloride 105 mmol/L Normal 98-107 [facility] ([place]) Comment on above: Performed By: #### C BC, ADIFF, ANEU, LIPID, CMP, GFR, TSH, FT4, FT3 ####[place] [address]#### B12, VIDH, CRP, MCRSO ####[place] [address] CO2 26 mmol/L Normal 22-29 [facility] ([place]) Comment on above: Performed By: #### C BC, ADIFF, ANEU, LIPID, CMP, GFR, TSH, FT4, FT3 ####[place] [address]#### B12, VIDH, CRP, MCRSO ####[place] [address] Creatinine 0.6 mg/dL Normal 0.6-1.2 [facility] ([place] Comment on above: Performed By: #### C BC, ADIFF, ANEU, LIPID, CMP, GFR, TSH, FT4, FT3 ####[place] [address]#### B12, VIDH, CRP, MCRSO ####[place] [address] Electrolyte Balance 10.0 mEq/L Normal [facility] ([place]) Comment on above: Performed By: #### C BC, ADIFF, ANEU, LIPID, CMP, GFR, TSH, FT4, FT3 ####[place] [address]#### B12, VIDH, CRP, MCRSO ####[place] [address] Globulin 2.8 G/dL Normal [facility] ([place]) Comment on above: Performed By: #### C BC, ADIFF, ANEU, LIPID, CMP, GFR, TSH, FT4, FT3 ####[place] [address]#### B12, VIDH, CRP, MCRSO ####[place] [address] Glucose mass conc 91 mg/dL Normal 70-105 [facility] ([place]) Comment on above: Performed By: #### C BC, ADIFF, ANEU, LIPID, CMP, GFR, TSH, FT4, FT3 ####[place] [address]#### B12, VIDH, CRP, MCRSO ####[place] [address] Potassium molar conc 4.2 mmol/L Normal 3.5-5.1 [facility] ([place]) Comment on above: Performed By: #### C BC, ADIFF, ANEU, LIPID, CMP, GFR, TSH, FT4, FT3 ####[place] [address]#### B12, VIDH, CRP, MCRSO ####[place] [address] Protein 7.3 G/dL Normal 6.0-8.3 [facility] ([place] Comment on above: Performed By: #### C BC, ADIFF, ANEU, LIPID, CMP, GFR, TSH, FT4, FT3 ####[place] [address]#### B12, VIDH, CRP, MCRSO ####[place] [address] Sodium 141 mmol/L Normal 136-146 [facility] ([place]) Comment on above: Performed By: #### C BC, ADIFF, ANEU, LIPID, CMP, GFR, TSH, FT4, FT3 ####[place] [address]#### B12, VIDH, CRP, MCRSO ####[place] [address] Urea nitrogen 8.0 mg/dL Normal 7.0-18.0 [facility] ([place] Comment on above: Performed By: #### C BC, ADIFF, ANEU, LIPID, CMP, GFR, TSH, FT4, FT3 ####[place] [address]#### B12, VIDH, CRP, MCRSO ####[place] [address] FT3on 05-24-2017 Triiodothyronine (T3) free 2.2 pg/mL Low 2.3-4.0 [facility] ([place]) Comment on above: Performed By: #### C BC, ADIFF, ANEU, LIPID, CMP, GFR, TSH, FT4, FT3 ####[place] [address]#### B12, VIDH, CRP, MCRSO ####[place] [address] FT4on 05-24-2017 Thyroxine (T4) free 1.1 ng/mL Normal 0.6-1.7 [facility] ([place]) Comment on above: Performed By: #### C BC, ADIFF, ANEU, LIPID, CMP, GFR, TSH, FT4, FT3 ####[place] [address]#### B12, VIDH, CRP, MCRSO ####[place] [address] LIPIDon 05-24-2017 Cholesterol 355 mg/dL High 131-200 [facility] ([place]) Comment on above: Result Comment: Chol esterol Reference Interval:Less than 200 [id number] Borderline high [id number] and above High risk Performed By: #### C BC, ADIFF, ANEU, LIPID, CMP, GFR, TSH, FT4, FT3 ####[place] [address]#### B12, VIDH, CRP, MCRSO ####[place] [address] HDL Cholesterol 58 mg/dL Normal 35-90 [facility] ([place]) Comment on above: Result Comment: HDL Reference Interval:Less than 40 Low - high risk60 or above Optimal/lowers risk Performed By: #### C BC, ADIFF, ANEU, LIPID, CMP, GFR, TSH, FT4, FT3 ####[place] [address]#### B12, VIDH, CRP, MCRSO ####[place] [address] LDL Cholesterol 282 mg/dL High 0-130 [facility] ([place] Comment on above: Result Comment: LDL is a calculated result and requires a 12- hr fast.LDL Reference Interval:Less than 100 [id number] Near or above [id number] Borderline high [id number] High uuzy683 and above Very high risk Performed By: #### C BC, ADIFF, ANEU, LIPID, CMP, GFR, TSH, FT4, FT3 ####[place] [address]#### B12, VIDH, CRP, MCRSO ####[place] [address] Triglyceride 76 mg/dL Normal 40-150 [facility] ([place]) Comment on above: Result Comment: Trig lyceride Reference Interval:Less than 150 [id number] Borderline high [id number] High sxtr304 or higher Very high risk Performed By: #### C BC, ADIFF, ANEU, LIPID, CMP, GFR, TSH, FT4, FT3 ####[place] [address] [place] [address]#### B12, VIDH, CRP, MCRSO ####[place] [address] TSHon 05-24-2017 Thyroid stimulating hormone (TSH) 1.95 mcIU/mL Normal 0.27-4.20 [facility] ([place]) Comment on above: Performed By: #### C BC, ADIFF, ANEU, LIPID, CMP, GFR, TSH, FT4, FT3 ####[place] [address] [place] [address]#### B12, VIDH, CRP, MCRSO ####[place] [address] [facility] Vit. D 25-Hydroxy 31 ng/mL Normal [facility] ([place] Comment on above: Result Comment: Inte rpretive Values Based on Total 25(OH)D: Severe Deficiency <20 ng/mL Mild to Moderate Deficiency 20-30 ng/mL Optimum Levels 30-100 ng/mL Toxicity Possible >100 ng/mL Performed By: #### C BC, ADIFF, ANEU, LIPID, CMP, GFR, TSH, FT4, FT3 ####[place] [address] [place] [address]#### B12, VIDH, CRP, MCRSO ####[place] [address] Vital Signs Date Time Vital Sign Value Performing Clinician Facility 11-07-2024 22:09-0400 Body temperature 98.3 [degF] Benita Shin HUB [facility]ER-[facility] 11-07-2024 22:09-0400 Diastolic blood pressure 66 mm[Hg] Benita Shin [facility] 11-07-2024 22:09-0400 Heart rate 78 /min [facility] Aleida [facility] 11-07-2024 22:09-0400 Respiratory rate 14 /min [facility] 11-07-2024 22:09-0400 SaO2% (BldA) [Mass fraction] 98 % [facility] Miamimelita [facility] 11-07-2024 22:09-0400 Systolic blood pressure 114 mm[Hg] Benita Aleida [facility] 11-07-2024 16:30-0400 Body height 162.56 cm [facility] 11-07-2024 16:30-0400 Body mass index (BMI) [Ratio] 25.5 kg/m2 [facility] 11-07-2024 16:30-0400 Body weight 67.58 kg [facility] 10-29-2024 10:52-0400 Body mass index (BMI) [Ratio] 26.19 kg/m2 Yeimy [facility] JANITOR SUPERVISOR.NURSE ADVOCATE Work Phone: [facility] 10-29-2024 10:52-0400 Body temperature 97.11 [degF] [facility] JANITOR SUPERVISOR.NURSE ADVOCATE Work Phone: [facility] 10-29-2024 10:52-0400 Body weight 69.2 kg Yeimy Vernongianna JANITOR SUPERVISOR.NURSE ADVOCATE Work Phone: [facility] 10-29-2024 10:52-0400 Diastolic blood pressure 70 mm[Hg] Yeimy Vernongianna JANITOR SUPERVISOR.NURSE ADVOCATE Work Phone: [facility] 10-29-2024 10:52-0400 Heart rate 86 /min Yeimy Tyler JANITOR SUPERVISOR.NURSE ADVOCATE Work Phone: [facility] 10-29-2024 10:52-0400 Respiratory rate 16 /min Yeimy Tyler JANITOR SUPERVISOR.NURSE ADVOCATE Work Phone: [facility] 10-29-2024 10:52-0400 SaO2% (BldA) [Mass fraction] 100 % Yeimy Vernonbehzad JANITOR SUPERVISOR.NURSE ADVOCATE Work Phone: [facility] 10-29-2024 10:52-0400 Systolic blood pressure 122 mm[Hg] Yeimy Nayeli JANITOR SUPERVISOR.NURSE ADVOCATE Work Phone: [facility] 05-14-2022 19:02-0500 Diastolic blood pressure 92 mm[Hg] [facility] Work Phone: 05-14-2022 19:02-0500 Heart rate 85 /min [facility] Work Phone: 05-14-2022 19:02-0500 Respiratory rate 13 /min [facility] Work Phone: 05-14-2022 19:02-0500 SaO2% (BldA) [Mass fraction] 100 % [facility] Work Phone: 05-14-2022 19:02-0500 Systolic blood pressure 154 mm[Hg] [facility] Work Phone: 05-14-2022 17:26-0500 Body height 162.56 cm [facility] Work Phone: 05-14-2022 17:26-0500 Body mass index (BMI) [Ratio] 24.2 kg/m2 [facility] Work Phone: 05-14-2022 17:26-0500 Body temperature 97.2 [degF] [facility] Work Phone: 05-14-2022 17:26-0500 Body weight 63.95 kg [facility] Work Phone: 05-14-2022 17:04-0500 Diastolic blood pressure 88 mm[Hg] Bret Storey MD Work Phone: [facility] 05-14-2022 17:04-0500 Systolic blood pressure 164 mm[Hg] Bret Storey MD Work Phone: [facility] 05-14-2022 15:40-0500 Body temperature 98.01 [degF] Bret Storey MD Work Phone: [facility] 05-14-2022 15:40-0500 Body weight 64.23 kg Bret Storey MD Work Phone: [facility] 05-14-2022 15:40-0500 Heart rate 104 /min Bret Storey MD Work Phone: [facility] 05-14-2022 15:40-0500 Respiratory rate 18 /min Bret Storey MD Work Phone: [facility] 05-14-2022 15:40-0500 SaO2% (BldA) [Mass fraction] 99 % Bret Storey MD Work Phone: [facility] Encounters Encounter Date Encounter Type Care Provider Facility Start: 12-05-2024 ambulatory Benita Shin NP Fa cility:[facility] Start: 11-23-2024 ambulatory [facility] lity:[facility] Start: 11-19-2024 [facility] Start: 11-13-2024 End: 11-13-2024 ambulatory Batool Barrera Facility:[facility] Start: 11-07-2024 End: 11-07-2024 Emergency department patient visit Benita Shin HUB BANDER-C -Emergency Department Work Phone: Start: 10-29-2024 End: 10-29-2024 Office outpatient visit 15 minutes Yeimy Tyler APRN.CNP Work Phone: [facility] Comment on above: Burning with urinati on (Primary Dx) Start: 10-29-2024 End: 10-29-2024 ambulatory KEYUR CLOUD III Facility:[facility] Start: 07-30-2023 End: 07-30-2023 ambulatory [facility] Work Phone: Start: 07-30-2023 End: 07-30-2023 Patient encounter procedure [facility]-Ultrasound, [facility] Work Phone: Start: 07-25-2023 End: 07-25-2023 ambulatory [facility] Work Phone: Start: 07-25-2023 End: 07-25-2023 Patient encounter procedure [facility]-Laboratory, Specimen Work Phone: Start: 05-14-2022 End: 05-14-2022 Emergency department patient visit [facility]-Emergency Department Start: 05-14-2022 End: 05-14-2022 Subsequent hospital visit by physician Xr [facility] Work Phone: Radiology Comment on above: Acute cough [R05.1] Start: 05-14-2022 End: 05-14-2022 Patient encounter procedure Bert Storey MD Work Phone: [facility] Comment on above: Acute cough (Primary Dx); Pleuritic chest pain; Elevated blood pressure reading without diagnosis of hypertension Start: 05-24-2017 End: 05-25-2017 Ambulatory [facility] Facility:[facility] Procedures Date Procedure Procedure Detail Performing Clinician Start: 11-07-2024 Transvaginal echography Benita Shin HUB BANDER-C Start: 11-07-2024 Urnls dip stick/tabl et reagent auto microscopy Benita Shin [employer]ER-C Start: 10-29-2024 Urnls dip stick/tabl et rgnt auto w/o microscopy Bushra Fields JANITOR SUPERVISOR.NURSE ADVOCATE Work Phone: Start: 07-30-2023 US scan of thyroid Start: 05-14-2022 Radiologic exam ches t 2 views Bret Storey MD Work Phone: Start: 06-19-2013 Lipid 1996 panel - S matty or Plasma Yeimy Tyler JANITOR SUPERVISOR.NURSE ADVOCATE Work Phone: Plan of Treatment Date Care Activity Detail Author Start: 02-11-2025 Influenza vaccination Influenza Vaccine (Season Ended) [facility] Start: 11-07-2024 [facility] Start: 2024 Diabetes Screening Diabetes Screening [facility] Start: 2024 Lipid panel Lipid Screening [facility] Start: 2024 Screening for malignant neoplasm of colon [facility] Start: 02-12-2024 Covid-19 Vaccine ( season) Covid-19 Vaccine ( season) [facility] Start: 02-12-2024 Influenza vaccination Influenza Vaccine (#1) [facility] Start: 02-11-2022 Influenza vaccination INFLUENZA (#1) [facility] Start: 06-13-2021 DEPRESSION ASSESSMENT DEPRESSION ASSESSMENT [facility] Start: 02-24-2021 HPV TESTING HPV TESTING [facility] Start: 02-24-2021 PAP TESTING PAP TESTING [facility] Start: 02-24-2021 Screening for malignant neoplasm of cervix Cervical Cancer Screening [facility] Start: 2019 Mammography MAMMOGRAM [facility] Start: 2019 Screening for malignant neoplasm of breast Mammogram Screening [facility] Start: 1998 Hepatitis B Vaccine (1 of 3 - 19+ 3-dose series) Hepatitis B Vaccine (1 of 3 - 19+ 3-dose series) [facility] Start: 1998 Urine microalbumin profile [facility] Start: 1997 Anxiety Screening Anxiety Screening [facility] Start: 1997 Depression Screening Depression Screening [facility] Start: 1997 HEPATITIS C SCREENING HEPATITIS C SCREENING [facility] Start: 1997 Hepatitis C screening Hepatitis C Screening [facility] Start: 1997 HIV SCREENING HIV SCREENING [facility] Start: 1997 HIV screening HIV Screening [facility] Start: 02-08-1980 COVID-19 VACCINE (#1) COVID-19 VACCINE (#1) [facility] Start: 1979 HEPATITIS B (1 of 3 - 3-dose series) HEPATITIS B (1 of 3 - 3-dose series) [facility] Bacteria identified in Urine by Culture BACTERIAL CULTURE, URINE Microbiology Routine Burning with urination 10/29/2024 11:18 AM EDT [facility] Work Phone: Patient Education [facility] Work Phone: Patient referral [facility] Work Phone: Payers Date Payer Category Payer Self-pay 2019 [employer] BLUE CARD PPO OOS [id number] 2019 Unknown [employer] BLUE CARD PPO OOS [id number] 2019-Present [phone] [address] [place] [address] PPO [id number] 2017 Unknown [id number] 2007 Unknown [id number] Unknown [id number] Unknown [id number] Unknown [id number] Unknown [id number] Unknown [id number] Social History Date Type Detail Facility Start: 05-14-2022 Tobacco smoking status NHIS Unknown if ever smoked [facility] Start: 1980 Sex Assigned At Female [facility] Start: 07-11-2013 End: 11-07-2024 Tobacco smoking status NHIS Never smoked tobacco [facility] Start: 07-11-2013 Tobacco use and exposure Smokeless tobacco non-user [facility] Start: 05-14-2022 End: 10-29-2024 Alcohol intake Current non-drinker of alcohol (finding) [facility] Start: 1980 Sex Assigned At Not on file [facility] Start: 05-04-2022 End: 05-14-2022 Exposure to SARS-CoV-2 (event) Not sure [facility] Work Phone: Start: 05-21-2020 End: 05-14-2022 History of Social function [facility] Start: 05-21-2020 End: 05-14-2022 Tobacco use panel [facility] National Score (1-100), lower number is lower risk Not on file [facility] NEGATED: Highlighted row [facility] Work Phone: Mental Status Date Assessment Result Facility 05-14-2022 Cognitive function Level Of Cons ciousness Awake;Alert;Appropriate;Follow s Commands [facility] Work Phone: Clinical Notes 08-26-2009 to 11-07-2024 Note Date & Type Note Facility 11-07-2024 Discharge summary [facility] 11-07-2024 Radiology Diagnostic study note [facility] Imaging Services [address] [place], [place] [address] Transvaginal Non- MR#: [id number] Acct: [id number] Name: SENDY CARRENO Rep #: [id number] : 1980 F 44 From: Grace Connolly DO PCP: Benita Shin NP-C Status: RE G ER Study:Transvaginal Non- Date of Exam: 11/07/24 Exam# [id number] Ordering Dr: Tracy Ochoa MD PROCEDURE: TRANSVAGINAL NON- 11/07/2024 REASON FOR EXAM: TENDERNESS AND PAIN RIGHT OVARY WHICH MAY BE ENLAR TECHNIQUE: Transvaginal pelvic ultrasound COMPARISON: None FINDINGS: Measurements: Uterus: 8.3 x 5.6 x 4.5 cm with a volume of 108 mL Endometrial Thickness: 1.1 cm Right Ovary: 3.3 x 1.9 x 1.4 cm with a volume of 4.6 mL. Left Ovary: 4 x 2.6 x 2.4 cm with a volume of 13.4 mL. Uterus: Heterogeneous in echotexture. Normal in size. No suspicious lesions. Endometrium: Is thickened and heterogeneous measuring 1.1 cm. Right ovary: Normal size and echotexture. Left ovary: 2.5 cm complex and heterogeneous hypoechoic cystic lesion. Other: Moderate free fluid within the cul de sac. US/Transvaginal Non- IMPRESSION: No sonographic evidence of torsion. Thickened and heterogeneous endometrium measuring up to 1.1 cm, please correlateclinically with patient's menstrual cycle. If clinically indicated sonohysterogram may be helpful for further characterization. 2.5 cm complex heterogeneous left ovarian cysts, may represent hemorrhagic cysts. Moderate free fluid within the cul-de-sac. [facility]: HUB [facility]ER-C Benita Shin; Dr. Christopher Ochoa MD ~ Software Licensing Specialist: Signed [facility] 11-07-2024 Discharge summary Note Date/Time November 07, 2024 10:08pm [facility] Medical Records Department [address] [place] [address] Emergency Department Summary 11/07/24 MR#: [id number] Acct: [id number] Name: SENDY CARRENO Rep #:[id number] : 1980 44 From: Christopher Ochoa MD PCP: TYRA Benitez Status:RE G ER Location: ED HPI History of Present Illness Chief Complaint: Complaint Detail of Chief Complaint: UTI, right inguinal right lower abdominal pain Informant: patient and spouse/S.O. Onset/Context/Timing Onset: Days (Approximately 7 to 8 days) Context: Sudden Onset Timing: Continuous and Waxes and wanes Quality: Pain Location: Right inguinal area that goes up to the iliac crest on the right and to the Current Severity: Mild Maximum Severity: Moderate Worsened by: Movement and palpation Relieved by: Nothing Associated Symptoms Associated Symptoms: Patient states she was diagnosed with a UTI and treated with metronidazole Narrative Narrative: Patient is a 44-year-old G3, P3 female whose last normal menses was October 26. Shestates her cycle is approximate 25 days in duration. She does report vaginal discharge. She was able to look up her records from [facility]. Patient had bacterial vaginosis infection and reason she was treated with Flagyl. She does not have a UTI. She denies fever, chills night sweats. She denies nausea, vomiting diarrhea or constipation. She denies history of ovarian cyst, endometriosis or STI. She ismarried and reports monogamous relationship. Patient denies any rash lesions or bumps. Prior similar symptoms: No Recent Illness/Hospitalization: Yes (She had a vaginal swab done and UA at urgent care.) PFSH PFSH Home Medications ?Medication ?Instructions ?Recorded ?Last Taken ?Type naproxen 500 mg tablet 500 mg PO BID #14 tabs 11/07 Unknown Rx Allergy/AdvReac Type Severity Reaction Status Date / Time No Known Allergies Allergy Verified 11/07/24 16:30 Family History Grandfather CAD (coronary artery disease) Social History household members: spouse housing: house Smoking Status: Never smoker ROS ROS ED Constitutional Constitutional ED: Denies chills, fever(s), subjective, sweats or weight loss Gastrointestinal Gastrointestinal: Reports abdominal pain; Denies constipation, diarrhea or melena Genitourinary Genitourinary ED: Reports LMP (females 10-50) Details: Comment: (October 16 and was normal); Denies dysuria, hematuria or urinary frequency Musculoskeletal Musculoskeletal: Denies arthralgias, back pain or myalgias Integumentary Denies rash Neurologic Neurologic: Denies paresthesias or weakness EXAM Physical Exam Const Vital Signs: 11/07/24 16:30 11/07/24 20:29 Temperature 97 F L Temperature Source Temporal Pulse Rate 99 78 Respiratory Rate 15 Blood Pressure 178/93 H 114/66 Blood Pressure Mean 121 82 Pulse Ox 100 Oxygen Delivery Method Room Air Positive well nourished and well developed Constitutional Narrative: Patient reports she is anxious. Blood pressure is elevated. General Appearance ED: well developed and NAD; Negative for cyanotic, diaphoretic or pallor HEENT Reports moist mucous membranes HEENT Narrative: Head is atraumatic normocephalic. Ears normal. Nares patent. Eyes PERRL and EOMs intact bilaterally General Eye ED: Negative for pale conjunctiva or scleral icterus Neck no lymphadenopathy, supple and no JVD Chest Wall inspection of chest normal and palpation of chest normal Resp normal respiratory effort and clear to auscultation bilaterally Cardio regular rate, regular rhythm, S1 normal heart sound, S2 normal heart sound and no murmurs GI non-distended and no masses; Negative for non-tender or hepatosplenomegaly GI Narrative: There is no right inguinal lymphadenopathy or mass. Bowel sounds are slightly diminished. Inspection is normal. Narrative: External genitalia is normal. Patient has evidence of a cystocele. Vaginal mucosa is normal. Cervix is slightly friable. She does have a discharge noted. She complained of discomfort right adnexa. Question of the right ovary being larger. She has no tenderness or or fullness in the left adnexal area. She hada negative chandelier sign. Back/Spine no CVA tenderness Extremity normal to inspection Neuro oriented x3 and CN's II-XII intact bilaterally Sensorium / Orientation: alert Psych Mood & Affect: anxious Skin no rashes or lesions noted, no wounds and skin turgor normal General Skin Exam: Negative for jaundice or pallor MDM MDM MDM Narrative Medical decision making narrative: Differential diagnosis would include inguinal hernia, femoral hernia, ovarian cyst, ectopic , atypical presentation for ureterolithiasis. Since patient workup was negative pelvic exam was obtained. Because of the abnormal findings ultrasound was obtained. History & Record Review Additional record(s) reviewed:: Prior outpatient record and Prior ED visit Lab Data Attestation: I reviewed the patient's lab results. Lab results narrative: CBC is normal. UA is negative. test is negative. Labs: Laboratory Results - last 24 hr 11/07/24 17:39 WBC 8.9 RBC 4.64 Hgb 14.3 Hct 41.3 MCV 89.0 MCH 30.8 MCHC 34.6 RDW Std Deviation 37.1 RDW Coeff of Pa 11.5 L Plt Count 313 MPV 8.8 Immature Gran % (Auto) 0.200 Neut % (Auto) 63.5 Lymph % (Auto) 29.2 Amite % (Auto) 5.9 Eos % (Auto) 0.6 Baso % (Auto) 0.6 Absolute Neuts (auto) 5.7 Absolute Lymphs (auto) 2.59 Nucleated RBC % 0 Urine Color Yellow Urine Clarity Clear Urine pH 6.5 Ur Specific Lawn 1.005 Urine Protein Negative Urine Glucose (UA) Normal Urine Ketones 15 H Urine Occult Blood Negative Urine Nitrite Negative Urine Bilirubin Negative Urine Urobilinogen Normal Ur Leukocyte Esterase Negative Urine RBC 0-5 SEEN Urine WBC 0 SEEN Ur Squamous Epith Cells 0-5 SEEN Urine Bacteria 0 SEEN Urine Mucus 0 SEEN Radiography Diagnostic Testing: Clinical Impression(s) from Imaging Studies Transvaginal US 11/07/24 20:21 IMPRESSION: No sonographic evidence of torsion. Thickened and heterogeneous endometrium measuring up to 1.1 cm, please correlateclinically with patient's menstrual cycle. If clinically indicated sonohysterogram may be helpful for further characterization. 2.5 cm complex heterogeneous left ovarian cysts, may represent hemorrhagic cysts. Moderate free fluid within the cul-de-sac. Reading Location: [facility] Ultrasound report was reviewed. Patient has a 2.5 cm complex heterogeneous leftovarian cyst which probably represents a hemorrhagic cyst. There was fluid noted in the cul-de-sac. The endometrium is slightly thickened. Treatment and Re-Evaluation :: Patient was informed of her laboratory results. The swab that was positive for the bacterial vaginosis was obtained through [facility]. Patient was informed that this represents a bacterial infection of her vagina and reason shewas placed on that specific antibiotic. Discharge Plan Triage Chief Complaint: Complaint ED Provider: Christopher Ochoa Dx/Rx/DC Orders Clinical Impression: Deep right inguinal pain, Cyst of left ovary, Ovarian cyst rupture, Bacterial vaginosis Instructions: ED Ovarian Cyst, ED Bacterial Vaginosis (BV) Prescriptions: New naproxen 500 mg tablet 500 mg PO BID Qty: 14 0RF Primary Care Provider: Benita Shin NP Referrals: Benita Shin HUB BANDER, HUB BANDER-C [Primary Care Provider] - 3-5 Days Activity Restrictions/Additional Instructions: 1. Take antibiotics until gone. 2. If your pain gets worse follow-up with your apprentice funeral director sooner than 3 to 5 days or when scheduled. Print Language: Moldovan Disposition Disposition: Home, Self Care What to do if you have Problems For any increased pain, shortness of breath, bleeding, nausea or vomiting, chestpain, or any unexpected problems, contact your Primary Care Provider. Call [facility] ([phone]) or report to the closest Emergency Room. Call 911 if necessary. 11/07/242207 <Electronically signed by Christopher Ochoa MD> Cosigner Signature (if applicable): CC: TYRA Shin ~ Signed [facility] Work Phone: [phone]) 566-934505-19-2025 NoteHNO ID: [id number] Author: YEIMY TYLER APRN.NURSE ADVOCATE Service: ? Author Type: Nurse Practitioner Type: Progress Notes Filed: 10/29/2024 11:15 Note Text: Subjective HPI Nontoxic-appearing female presents urgent care chief plaint possible UTI. Duration of symptoms 10 days. Associated symptoms dysuria and frequency. Has had a UTI but this has not been for many years. OTC medications with no success. Denies any vomiting abdominal pain nausea flank pain vaginal discharge itching. No concerns for STDs. Last menstrual cycle 1 week ago. Denies chance of . Is not breast-feeding. Past medical history prescription medications allergies reviewed .Patient presents with: Urinary Problem: pain and burning with urination x 10 days PAST MEDICAL HISTORY Diagnosis Date NEGATIVE MEDICAL HISTORY PAST SURGICAL HISTORY Procedure Laterality Date PAST SURGICAL HISTORY OF 05/15 HYMENECTOMY UNSPECIFIED ORAL SURGERY PROCEDURE, BY REPORT [place] [facility] ALLERG[facility] Patient has no known allergies. MEDICATIONS No prescriptions on file. FAMILY HISTORY Problem Relation Age of Onset Hypertension Father Diabetes Maternal Grandfather Thyroid Mother Social History Tobacco Use Smoking status: Never Smokeless tobacco: Never Substance Use Topics Alcohol use: No Drug use: No BP 122/70 Pulse 86 Temp 36.2 ?C (97.1 ?F) Resp 16 Wt 69.2 kg (152 lb 8.9 oz) LMP 09/07/2017 SpO2 100% BMI 26.19 kg/m? Review of Systems Constitutional: Negative for chills, fever and malaise/fatigue. Cardiovascular: Negative for chest pain. Gastrointestinal: Negative for abdominal pain, constipation, diarrhea, nausea and vomiting. Genitourinary: Positive for frequency and urgency. Negative for dysuria, flank pain and hematuria. Musculoskeletal: Negative for myalgias. Objective Physical Exam Vitals and nursing note reviewed. Constitutional: General: She is not in acute distress. Appearance: She is not diaphoretic. HENT: Head: Jaw: No trismus. Right Ear: Hearing normal. No decreased hearing noted. No drainage, swelling or tenderness. Tympanic membrane is not perforated, erythematous or bulging. Left Ear: Hearing normal. No decreased hearing noted. No drainage, swelling or tenderness. Tympanic membrane is not perforated, erythematous or bulging. Mouth/Throat: Pharynx: Uvula midline. No uvula swelling. Tonsils: No tonsillar abscesses. Cardiovascular: Rate and Rhythm: Normal rate and regular rhythm. Pulses: Normal pulses. Pulmonary: Effort: Pulmonary effort is normal. No respiratory distress. Breath sounds: Normal breath sounds. Chest: Chest wall: No tenderness. Abdominal: General: Bowel sounds are normal. There is no distension. Palpations: Abdomen is soft. Abdomen is not rigid. Tenderness: There is no abdominal tenderness. There is no right CVA tenderness, left CVA tenderness, guarding or rebound. Negative signs include Rebollar's sign and McBurney's sign. Musculoskeletal: General: No tenderness. Lymphadenopathy: Head: Right side of head: No submental, submandibular, tonsillar, preauricular, posterior auricular or occipital adenopathy. Left side of head: No submental, submandibular, tonsillar, preauricular, posterior auricular or occipital adenopathy. Cervical: Right cervical: No superficial or posterior cervical adenopathy. Left cervical: No superficial or posterior cervical adenopathy. Skin: General: Skin is warm and dry. Findings: No rash. Neurological: Mental Status: She is alert and oriented to person, place, and time. ASSESSMENT/PLAN: 1. Burning with urination - ICD9: 788.1, ICD10: R30.0 - UA DIP, URINE (POC) - BACTERIAL CULTURE, URINE Urine dip unremarkable. Differentials discussed with patient. Urine culture ordered. Treat accordingly culture results. Recommend following up with PILOT SAFETY INSPECTOR if symptoms persist. Patient was educated on supportive therapies. Patient will follow up with primary care provider as needed. Patient was instructed to immediately proceed to emergency room for any new, worsening, or symptoms lasting longer than anticipated. The patient's clinical presentation is otherwise unremarkable at this time. Based on exam and clinical finding, the patient is stable for discharge. Plan of care was discussed with patient. Patient verbalizes understanding and agrees to plan of care. This note was generated using PacerPro software. It may contain errors in wording, punctuation, or spelling. Yeimy Tyler APRN.[facility]05-19-2025 History of Present illness Narrative* Yeimy Tyler APRN.NURSE ADVOCATE - 10/29/2024 10:57 AM EDT Subjective HPI Nontoxic-appearing female presents urgent care chief plaint possible UTI. Duration of symptoms 10 days. Associated symptoms dysuria and frequency. Has had a UTI but this has not been for many years. OTC medications with no success. Denies any vomiting abdominal pain nausea flank pain vaginal discharge itching. No concerns for STDs. Last menstrual cycle 1 week ago. Denies chance of . Is not breast-feeding. Past medical history prescription medications allergies reviewed .Patient presents with: Urinary Problem: pain and burning with urination x 10 days PAST MEDICAL HISTORY Diagnosis Date NEGATIVE MEDICAL HISTORY PAST SURGICAL HISTORY Procedure Laterality Date PAST SURGICAL HISTORY OF 05/15 HYMENECTOMY UNSPECIFIED ORAL SURGERY PROCEDURE, BY REPORT [place] [facility] Patient has no known allergies. MEDICATIONS No prescriptions on file. FAMILY HISTORY Problem Relation Age of Onset Hypertension Father Diabetes Maternal Grandfather Thyroid Mother Social History Tobacco Use Smoking status: Never Smokeless tobacco: Never Substance Use Topics Alcohol use: No Drug use: No BP 122/70 Pulse 86 Temp 36.2 C (97.1 F) Resp 16 Wt 69.2 kg (152 lb 8.9 oz) LMP 09/07/2017 SpO2 100% BMI 26.19 kg/m Review of Systems Constitutional: Negative for chills, fever and malaise/fatigue. Cardiovascular: Negative for chest pain. Gastrointestinal: Negative for abdominal pain, constipation, diarrhea, nausea and vomiting. Genitourinary: Positive for frequency and urgency. Negative for dysuria, flank pain and hematuria. Musculoskeletal: Negative for myalgias. Objective Physical Exam Vitals and nursing note reviewed. Constitutional: General: She is not in acute distress. Appearance: She is not diaphoretic. HENT: Head: Jaw: No trismus. Right Ear: Hearing normal. No decreased hearing noted. No drainage, swelling or tenderness. Tympanic membrane is not perforated, erythematous or bulging. Left Ear: Hearing normal. No decreased hearing noted. No drainage, swelling or tenderness. Tympanicmembrane is not perforated, erythematous or bulging. Mouth/Throat: Pharynx: Uvula midline. No uvula swelling. Tonsils: No tonsillar abscesses. Cardiovascular: Rate and Rhythm: Normal rate and regular rhythm. Pulses: Normal pulses. Pulmonary: Effort: Pulmonary effort is normal. No respiratory distress. Breath sounds: Normal breath sounds. Chest: Chest wall: No tenderness. Abdominal: General: Bowel sounds are normal. There is no distension. Palpations: Abdomen is soft. Abdomen is not rigid. Tenderness: There is no abdominal tenderness. There is no right CVA tenderness, left CVA tenderness, guarding or rebound. Negative signs include Rebollar's sign and McBurney's sign. Musculoskeletal: General: No tenderness. Lymphadenopathy: Head: Right side of head: No submental, submandibular, tonsillar, preauricular, posterior auricular or occipital adenopathy. Left side of head: No submental, submandibular, tonsillar, preauricular, posterior auricular or occipital adenopathy. Cervical: Right cervical: No superficial or posterior cervical adenopathy. Left cervical: No superficial or posterior cervical adenopathy. Skin: General: Skin is warm and dry. Findings: No rash. Neurological: Mental Status: She is alert and oriented to person, place, and time. ASSESSMENT/PLAN: 1. Burning with urination - ICD9: 788.1, ICD10: R30.0 - UA DIP, URINE (POC) - BACTERIAL CULTURE, URINE Urine dip unremarkable. Differentials discussed with patient. Urine culture ordered. Treat accordingly culture results. Recommend following up with PILOT SAFETY INSPECTOR if symptoms persist. Patient was educated onsupportive therapies. Patient will follow up with primary care provider as needed. Patient was instructed to immediately proceed to emergency room for any new, worsening, or symptoms lasting longer than anticipated. The patient's clinical presentation is otherwise unremarkable at this time. Based on exam and clinical finding, the patient is stable for discharge. Plan of care was discussed with patient. Patient verbalizes understanding and agrees to plan of care. This note was generated using PacerPro software. It may contain errors in wording, punctuation, or spelling. Yeimy Tyler APRN.ALLA documented [facility] History of Present illness Narrative* Bret Storey MD - 05/14/2022 3:46 PM EST Patient presents with: Cough: Chest congestion, ST [...] HYMENECTOMY UNSPECIFIED ORAL SURGERY PROCEDURE, BY REPORT [place] [facility] MEDICATIONS: No current outpatient medications on [...] evaluation in the ER. Report sent to [facility] by Henry. 3. Elevated blood pressure reading without diagnosis of hypertension - ICD9: 796.2, ICD10: R03.0 Improved with recheck. She does have a PCP. Bret Storey MD documented in this encounterHol[facility]-16-[facility] History of Past illness Narrative* Problem Noted Date Resolved Date Supervision of other high-risk (V23.89) 08/26/2009 01/27/2010 Threatened premature labor, antepartum(644.03) 0 09/12/2006 11/23/2006 Supervision of other normal 04/23/2006 11/23/2006 documented as of this encounter (statuses as of 05/14/2022) [facility] noteNo assessment information availableWZanesville City Hospital Work Phone: Evaluation note* Diagnosis Acute cough- Primary Pleuritic chest pain Painful respiration Elevated blood pressure reading without diagnosis of hypertension documented in this encounter [facility] note* Diagnosis Acute cough Pleuritic chest pain Painful respiration documented in this encounter [facility] note* Diagnosis Burning with urination- Primary Dysuria [facility] Additional Instructions 1. Take antibiotics until gone. 2. If your pain gets worse follow-up with your apprentice funeral director sooner than 3 to 5 days or when scheduled.[facility] Work Phone: Reason for referral (narrative)No reason for referral information availableWZanesville City Hospital Work Phone: Summary Purpose Family History No Family History Records Found Relationship Condition Age at Onset Recorded Date/T dorys grandfather Coronary artery disease Unknown Advance Directives No Advanced Directives Records Found Advance Directive Response Recorded Date/ Time Living Will No May 14 6:21pm Power of Fire Warden No May 14, 2022 6:21pm Advance Directive Response Recorded Date/ Time Do you have a Healthcare Power of Fire Warden? No November 07, 2024 4:52pm Chief Complaint and Reason for Visit Chief Complaint CHEST TIGHTNESS Chief Complaint THYROID NODULE Chief Complaint Admit Date COMPLAIN November 07, 2024 4:29p m Additional Source Comments INFORMATION SOURCE (unrecogn ized section and content) DATE CREATED AUTHOR 12/06/2017 [facility] ([place]) DATE CREATED AUTHOR AUTHOR'S ORGANIZ ATION 10/31/2024 [facility] DATE CREATED AUTHOR AUTHOR'S ORGANIZ ATION 11/20/2024 [facility] Goals (unrecognized section and content) Goals may be documented in a n alternate sectionGoals may be documented in an alternate sectionGoals may be documented in an alternate sectionGoals may be documented in an alternate section Source Comments (unrecognize d section and content) In the event this informatio n is protected by the Federal Confidentiality of Alcohol and Drug Abuse Patient Records regulations: The Federal rules restrict any use of the information to criminally investigate or prosecute any alcohol or drug abuse patient.[facility] the event this information is protected by the Federal Confidentiality of Alcohol and Drug Abuse Patient Records regulations: The Federal rules restrict any use of the information to criminally investigate or prosecute any alcohol or drug abuse patient.[facility] the event this information is protected by the Federal Confidentiality of Alcohol and Drug Abuse Patient Records regulations: The Federal rules restrict any use of the information to criminally investigate or prosecute any alcohol or drug abuse patient.[facility] Reason for Visit (unrecogniz ed section and content) Reason Comments Cough Chest congestion, ST x1 day Reason Comments Urinary Problem pain and burning wit h urination x 10 days Care Teams (unrecognized sec tion and content) A R Specialist Relationship Specialty Start Date End Date Keyur Cloud [facility] [address] [place] [id number] PCP - General 12/24/03 Team Status: Active Member Role Status Dates Dr. Keyur Cloud MD Family Provider Active Benita Shin NP, HUB BANDER-C Primary Care Provider Activ e Team Status: Inactive Member Role Status Dates Benita Shin NP, HUB BANDER-C Primary Care Provider, Attending Provider, Referring Provider Active A R Specialist Relationship Specialty Start Date End Date Keyur Cloud [facility] [address] [place] [id number] PCP General 12/24/03 A R Specialist Relationship Specialty Start Date End Date Keyur Cloud [facility] [address] [place] [id number] PCP - General 12/24/03 Team Status: Active Member Role Status Dates Benita Shin NP, HUB BANDER-C Primary Care Provider Activ e Team Status: Inactive Member Role Status Dates Benita Shin NP, HUB BANDER-C Primary Care Provider Activ e Start: November 07, 2024 End: November 07, 2024 Dr. Christopher Ochoa MD Emergency Provider Active Sta rt: November 07, 2024 End: November 07, 2024 FOR RECORDS PERTAINING TO PATIENTS WHO ARE [...] BE BASED ON THE PRIMARY CLINICAL RECORDS. [facility] [employer] [facility]. provides no warranty or guarantee of the accuracy or completeness of information in this document.
[2024-11-24 08:08] LABS: PROGESTERONE 0.2 ng/mL (.)
== END | disposition home or self-care (01) ==
LOC: LABSPEC 16:07
PROVIDERS: PCP Nurse Practitioner Family; Referring Provider Nurse Practitioner Family; Visit Provider Nurse Practitioner Family
DX: R06.00 Dyspnea, unspecified (principal); R10.2 Pelvic and perineal pain; R53.83 Other fatigue; F41.9 Anxiety disorder, unspecified; N95.9 Unspecified menopausal and perimenopausal disorder
CPT/HCPCS: 80053; 80061; 82306; 82607; 82627; 82670; 82728; 83036; 83540; 84144; 84403; 86140; 82626

== ENCOUNTER → 2024-11-23 | Outpatient (CLI) | payer BC, SELFPAY ==
--- NOTE | 2024-11-23 16:18 | US_ITS ---
PROCEDURE: PELVIC W/ TRANSVAGINAL 11/23/2024 REASON FOR EXAM: FOLLOW UP CYST OF LEFT OVARY TECHNIQUE: Transabdominal pelvic ultrasound COMPARISON: Transvaginal pelvic ultrasound november 07, 2024 FINDINGS: Measurements: Uterus: 9.7 x 6.8 x 5.5 with a volume of 190.2 mL Endometrial Thickness: 9 mm Right Ovary: 2.5 x 2.4 x 1.3 with a volume of 4.2 mL. Left Ovary: 3.5 x 1.6 x 2.6 with a volume of 7.6 mL. Uterus: Normal size and appearance. No fibroids. Endometrium: 9 mm and unremarkable Right ovary: Normal size and appearance. Normal blood flow Left ovary: Normal size and appearance. Normal blood flow. No complex cyst on today's exam. . Other: US/Pelvic w/ Transvaginal IMPRESSION: No acute process demonstrated. Resolution of previous complex cyst left ovary Reading [facility]
== END | disposition home or self-care (01) ==
PROVIDERS: PCP Nurse Practitioner Family; Referring Provider Obstetrics & Gynecology; Visit Provider Obstetrics & Gynecology
DX: N83.202 Unspecified ovarian cyst, left side (principal)
CPT/HCPCS: 76830; 76856

== ENCOUNTER → 2025-01-21 | Outpatient (CLI) | payer BC, SELFPAY ==
--- NOTE | 2025-01-21 16:26 | MRI_ITS ---
PROCEDURE: SPINE LUMBAR (ROUTINE) 01/21/2025 REASON FOR EXAM: OHTER LOW BACK PAIN TECHNIQUE: SPINE LUMBAR (ROUTINE) COMPARISON: December 26, 2024 FINDINGS: Vertebrae: No fracture seen. Alignment: Straightening of the normal lumbar lordosis. Conus Medullaris: Terminates at L1. No abnormal signal. L1-2: Normal. L2-3: Minimal facet hypertrophy. L3-4: Mild thickening of ligamentum flavum. Mild facet hypertrophy. L4-5: Minimal, diffuse disc bulge. Moderate thickening of ligamentum flavum. Mild facet hypertrophy. L5-S1: Mild loss of disc height. Mild endplate irregularity and moderate, diffuse disc bulge. No central stenosis or exit foraminal narrowing. Sacrum: Unremarkable MRI/Spine Lumbar (Routine) IMPRESSION: Mild spondylosis greatest at the lumbosacral junction. Reading Location: [id number]
--- NOTE | 2025-01-21 16:27 | MRI_ITS ---
EXAM: PELVIS (ROUTINE) 01/21/2025 CLINICAL HISTORY: PAIN. TECHNIQUE: PELVIS (ROUTINE) Multiplanar and multisequence images were obtained without intravenous gadolinium contrast. CONTRAST: None COMPARISON: Abdomen MRI of the same day FINDINGS: Urinary bladder is normal. No evidence of cystocele. There is possibly a tiny cyst at the right aspect of the urethral orifice. This is 6 x 8 mm. This is likely related to the [place]'s gland. The vagina is unremarkable. The uterus is anteverted. Miniscule nabothian cysts at the internal cervical os. Endometrium is not thickened. Ovaries are unremarkable. Follicles are present. No lymphadenopathy. Small volume free fluid in the cul-de-sac. MRI/Pelvis (Routine) IMPRESSION: 1. No acute abnormality. 2. Tiny cyst at the right aspect of the urethral meatus likely related to the [place]'s gland. Recommend direct inspection. Often times these can be incidental and asymptomatic. Other times they can be inflamed/infected. No surrounding stranding seen. Reading Location: [id number]
--- NOTE | 2025-01-21 16:27 | MRI_ITS ---
PROCEDURE: ABDOMEN WITHOUT CONTRAST 01/21/2025 REASON FOR EXAM: PAIN MRCP Right inguinal pain, intermittent bilateral lower extremity numbness. Lower abdominal pain. TECHNIQUE: ABDOMEN WITHOUT CONTRAST Multiplanar and multisequence images were obtained. CONTRAST: None COMPARISON: None FINDINGS: Liver: Normal Biliary: Normal gallbladder. No biliary ductal dilation. Pancreas: Normal Spleen: Normal Adrenals: Normal Kidneys: Normal Peritoneum / Retroperitoneum: No free fluid or mass. Lymph Nodes: None appear enlarged. Major Vessels: Normal caliber Bones: Unremarkable MRI/Abdomen without Contrast IMPRESSION: No acute abnormality. Reading Location: [id number]
== END | disposition home or self-care (01) ==
LOC: MRI 16:14
PROVIDERS: PCP Nurse Practitioner Family; Referring Provider Nurse Practitioner Family; Visit Provider Nurse Practitioner Family
DX: R10.2 Pelvic and perineal pain (principal); M54.50 Low back pain, unspecified
CPT/HCPCS: 72148; 72195; 74181

== ENCOUNTER 2025-05-06 14:00 | Outpatient (RCR) | payer BC, SELFPAY ==
--- NOTE | 2024-12-05 19:32 | HP.PTEVAL ---
Patient's Visit Information Visit Information Visit Information: SENDY LOGAN is a 44 year old F referred to Physical Therapy by TYRA Stock with a diagnosis of M62.89 other specified disorders of muscle. Date of Evaluation: 12/05/24 Physical Therapist: Amy Blanc Visit Plan Frequency: 1-2x /Week Duration: 4 Months Plan: Sendy would benefit from skilled PT intervention to address her pelvic pain and LE symptoms. She appears to have some right sided lumbar dysfunction which is likely referring to the right groin , pelvic region/right LE. Her lumbar and pelvic malalignments may also be contribuiting by causing SI and facet joint irritation and muscle guarding. It is difficult to rule out the possibility of a lumbar bulging disc (we will continue to monitor). We will complete an internal pelvic floor exam at a future visit. Will see her 1-2 x week. Continue work on right lumbar next visit if helpful. How are press ups working? Subjective Subjective: About 2 months ago, her symptoms started. She woke up with symptoms of UTI (urgency, frequency, pain). Negative for UTI. Pain in the right groin area. Annoying. Didn't matter what she did or what she tried, it was painful. Tingling with radiation into the side of the vagina on the right side. She noticed a bulge vaginally. PCP did treat her for BV. She finished the treatment for BV. Still some discomfort from time to time. Dr. Barrera did not complete vaginal exam. She went to ER one afternoon as her pain was so bad and her anxiety was high. ER did vaginal, pelvic exam and US vaginal and pelvic. US was not concerning (cyst found on the left ovary). She wonders if her anxiety is contributing. Pain in the right groin is intermittent now (at its worst pain 3/10). High 8/10. She thinks it is anxiety or stress related. Pain can radiate into the medial thigh. She can also feel pressure if she pushes up by the rectal area. She has some right low back pain intermittently. Not consistent 2/10. Pulling, tightness. Pain usually stops at the knee and radiates to the top of the foot by the big toe. No pain with intercourse the last time she attempted but she has not tried recently due to the fear. She isn't sure what triggers it besides stress. She has a long history of constipation. Mild leaking with a sneeze or cough. She has 3 children vaginal deliveries. Her youngest is 15 years old. Pain right pelvic region: Pain Intensity (Out of 10): 2 Pain Intensity Range: 4 Objective Objective: POPDI-6 6, CRAD-8 0, LILI-6 2 Lumbar range of motion: Flexion mild tightness in right lumbar Extension pressure in right lower abdomen Sidebending left - pulling right lumbar Sidebending right- no change Rotation right - right lumbar pain Right great toe extension 4-/5 + slump test on right Posterior pelvic tilt- shooting pain into right LE Right upslip, right rotation L1-L5 , moderate right lumbar tightness reproduction of anterior pelvic pain with mobs to right lumbar Tender in right lower abdomen and iliopsoas with mild, moderate tension and tenderness + Fabere test Prone press ups - no pain and repeated press ups no pain Goals Goal 1:: Sendy will be able to do bending activities for housework without feeling pelvic pain or right LE symptoms during or after. Goal Time Frame: 12-16 Weeks Goal 2:: Sendy will be able to sit for up to 2 hours at a time to watch a movie without pelvic pain during or after. Goal Time Frame: 6-8 Weeks Goal 3:: Sendy will be able to stand for up to 1 hour at a time to do cooking activities without pelvic pain during or after. Goal Time Frame: 12-16 Weeks Goal 4:: Sendy will be able to bend and lift groceries without feeling pelvic pain. Goal Time Frame: 12-16 Weeks Goal 5:: Sendy will be able to navigate stressful situations without feeling pelvic pain during or after. Goal Time Frame: 12-16 Weeks Goal 6:: Sendy will be able to tolerate vaginal penetration with a gynecological exam using a medium sized speculum without pain during or after. Goal Time Frame: 12-16 Weeks Rehabilitation Potential Physical Therapy Diagnosis: Pelvic pain and perineal pain, low back pain, unspecified Rehabilitation Potential: Good Anticipated Interventions Patient/Client Instruction: Educate patient on: Condition and Plan of Care For the Purpose of:: To decrease pain, To improve muscle performance and motor function, To increase tolerance to activity/condition/position, To improve health and function and To improve self management Therapeutic Exercise to Include: Strength training, Relaxation training, Dynamic Lumbar Stabilization and Kayla Exercises For the Purpose of:: To decrease pain, To improve muscle performance and motor function, To improve ability to perform ADL's, To improve health and function and To improve self management Manual Therapy Techniques to Include: Trigger point massage, Mobilization and Soft tissue mobilization For the Purpose of:: To decrease pain, To improve muscle performance and motor function, To improve health and function and To improve self management Ultrasound (thermal/non thermal): Yes Pelvic traction prone: Yes For the Purpose of:: To decrease pain, To improve muscle performance and motor function, To decrease soft tissue restriction, To improve health and function and To improve self management Text: Thank you for the opportunity to evaluate your patient. For Medicare and Medicare HMO plans, please review the plan of care and approve it. It will need to be FAXED BACK to us at [phone] for Medicare purposes. For Medicare only, by signing this I certify the plan of care. Please let me know if there are questions or concerns regarding this plan of care. Physician Signature: Date:
== END 2025-05-06 19:00 | disposition home or self-care (01) ==
LOC: PT 14:00
PROVIDERS: PCP Nurse Practitioner Family; Referring Provider Nurse Practitioner Family; Visit Provider Nurse Practitioner Family
DX: M62.89 Other specified disorders of muscle (principal)
CPT/HCPCS: 97110; 97112; 97140; 97162